=== PATIENT | female | born 1950 | race Caucasian/White ===

== ENCOUNTER 2016-11-20 03:32 | Inpatient (IN) | payer MEDICARE, OTHER ==
[2016-11-20] VITALS (14 sets, daily range): BP systolic 107–143; BP diastolic 55–89; PULSE 89–111; RESP 19–20; TEMP 98.7; Ht 157.5 cm; Wt 87.0 kg
[~2016-11-20] VITALS: Ht 157.5 cm; Wt 87.0 kg
[2016-11-20] MEDS ORDERED: ALBUTEROL 0.5% (NEB) 2.5 MG/0.5 ML AMP INH STA (03:41)
[2016-11-20] MEDS ORDERED: IPRATROPIUM (NEB) 0.5 MG/2.5 ML AMP INH STA (03:41)
[2016-11-20] MEDS ORDERED: METHYLPREDNISOLONE 125 MG INJ IV STA (03:41)
[2016-11-20 04:15] LABS: BASOPHILS % 0.4 % (0.0-2.0); EOSINOPHILS # 0.2 10^3/ul (0.0-0.5); EOSINOPHILS % 2.5 % (0.0-7.0); HEMATOCRIT 33.6 % (37.0-47.0); HEMOGLOBIN 10.9 g/dl (12.0-16.0); LYMPHOCYTES # 2.2 10^3/ul (0.8-2.9); LYMPHOCYTES % 23.6 % (15.0-51.0); MEAN CORPUSCULAR HEMOGLOBIN 30.2 pg (29.0-33.0); MEAN CORPUSCULAR HGB CONC 32.6 g/dl (32.0-37.0); MEAN CORPUSCULAR VOLUME 92.8 fl (82.0-101.0); MEAN PLATELET VOLUME 9.4 fl (7.4-10.4); MONOCYTES % 10.8 % (0.0-11.0); NEUTROPHILS % 62.7 % (39.0-77.0); PLATELET COUNT 247 10^3/UL (140-440); RED BLOOD COUNT 3.62 10^6/ul (4.20-5.40); RED CELL DISTRIBUTION WIDTH 17.5 % (11.5-14.5); UNCORRECTED WBC 9.5 10^3/ul (4.8-10.8); WHITE BLOOD COUNT 9.5 10^3/ul (4.8-10.8)
--- NOTE | 2016-11-20 04:22 | RADRPT ---
PROCEDURE: XR Chest. CLINICAL INDICATION: Chest pain TECHNIQUE: Chest AP portable. COMPARISON: 10/08/2016 FINDINGS: The mediastinal structures are unremarkable. There is calcification of the thoracic aorta (consiste nt with atherosclerosis). There is moderate cardiac enlargement. There is mild pulmonary venous hy pertension. No consolidation is identified. The pleural spaces are unremarkable. There are senesc ent changes of the axial skeleton. IMPRESSION: Moderate cardiac enlargement. Mild pulmonary venous hypertension. RPTAT: HGDB .Kamlesh Ayala MD, Date Time Electronically viewed and signed by .Kamlesh Ayala MD, on 11/20/2016 04:21 .B/
[2016-11-20 04:23] LABS: CONDITION 1; LH ANALYZER COMMENTS 1
[2016-11-20 05:07] LABS: INR 1.39; PARTIAL THROMBOPLASTIN TIME 34.9 Sec (25.0-35.0); PROTIME 17.1 Sec (12.2-14.2); PT RATIO 1.3
[2016-11-20 05:13] LABS: POTASSIUM 3.8 mmol/L (3.5-5.1)
[2016-11-20 05:15] LABS: CREATININE 1.19 mg/dl (0.44-1.00)
[2016-11-20 05:25] LABS: CK-MB 1.37 ng/ml (0.0-2.4)
[2016-11-20 05:29] LABS: TROPONIN-I 0.031 ng/ml (0.00-0.12)
[2016-11-20] MEDS ORDERED: ACETAMINOPHEN 325 MG TAB PO PRN ×2 (05:30→06:30)
[2016-11-20] MEDS ORDERED: ONDANSETRON 4 MG INJ IV PRN ×2 (05:30→06:30)
--- NOTE | 2016-11-20 05:34 | ERA ---
ER Documentation Chief Complaint Date/Time DATE: 11/20/16 TIME: 05:31 Chief Complaint cough x 4 wks, increased SOB, low sats x 2 days. 89% ra on scene, hhn x1 HPI This is a 66-year-old female who presents to the emergency room for evaluation of shortness of breath, wheezing, and a dry cough. The patient was brought in by ambulance from her alf where she was found to have a pulse oxygen of 89% on room air. This patient has no chest pain at this time and came to the ER for evaluation. ROS All systems reviewed and are negative except as per history of present illness. Medications Home Meds No Active Prescriptions or Reported Meds Allergies Allergies: Coded Allergies: No Known Allergy (Verified , 09/23/16) PMhx/Soc History of Surgery: Yes Anesthesia Reaction: No Hx Neurological Disorder: No Hx Respiratory Disorders: Yes (shortness of breath on exertion, PNA) Hx Cardiac Disorders: Yes (Hypertension, heart disease, CHF, [place] AUG 2016) Hx Psychiatric Problems: No Hx Miscellaneous Medical Probl: No Hx Alcohol Use: No Hx Substance Use: No Hx Tobacco Use: No Smoking Status: Former smoker Physical Exam Vitals Vital Signs Date Time Temp Pulse Resp B/P Pulse Ox O2 Delivery O2 Flow Rate FiO2 11/20/16 04:00 104 26 95 Nasal Cannula 2.0 28 11/20/16 03:45 Nasal Cannula 4.0 11/20/16 03:45 Nasal Cannula 4 11/20/16 03:45 98.7 91 20 106/71 96 11/20/16 03:41 98.7 94 20 106/71 94 Physical Exam INITIAL VITAL SIGNS: Reviewed by me GENERAL: The patient is well developed, moderate respiratory HEENT: Pupils equal, round, and reactive to light. EOMI. There is no scleral icterus. NECK: C-spine is soft and supple, there is no meningismus. There is no cervical lymphadenopathy. LUNGS: Diffuse wheezing and rhonchi auscultated in all [place] HEART: Regular rate and rhythm, no murmurs, clicks, rubs or gallops. ABDOMEN: Soft, non-tender, non-distended. There are bowel sounds in all four quadrants. No rebound or guarding. EXTREMITIES: 1+ pitting edema in the bilateral lower exam NEUROLOGICAL: The patient moves all four extremities with 5/5 strength. Cranial nerves II - XII are intact. Normal gait. Alert and oriented SKIN: There is no apparent rash or petechiae. HEME/LYMPHATIC: There is no evidence of excessive bruising or lymphedema. PSYCHIATRIC: The patient does not appear anxious or depressed. Result Diagram: 11/20/1639911/20/160 Results 24 hrs Laboratory Tests Test 11/20/16 04:00 11/20/16 04:33 Anion Gap 19 Basophils # 0.010^3/ul Basophils % 0.4% Blood Morphology Comment Blood Urea Nitrogen 33mg/dl Calcium Level 8.0mg/dl Carbon Dioxide Level 25mmol/L Chloride Level 102mmol/L Creatinine 1.19mg/dl Eosinophils # 0.210^3/ul Eosinophils % 2.5% Glucose Level 107mg/dl Hematocrit 33.6% Hemoglobin 10.9g/dl Lymphocytes # 2.210^3/ul Lymphocytes % 23.6% Mean Corpuscular Hemoglobin 30.2pg Mean Corpuscular Hemoglobin Concent 32.6g/dl Mean Corpuscular Volume 92.8fl Mean Platelet Volume 9.4fl Monocytes # 1.010^3/ul Monocytes % 10.8% Neutrophils # 6.010^3/ul Neutrophils % 62.7% Nucleated Red Blood Cells # 0.010^3/ul Nucleated Red Blood Cells % 0.0/100WBC Platelet Count 43878^3/UL Potassium Level 3.8mmol/L Red Blood Count 3.6210^6/ul Red Cell Distribution Width 17.5% Sodium Level 142mmol/L White Blood Count 9.510^3/ul Activated Partial Thromboplast Time 34.9Sec B-Type Natriuretic Peptide 3510PG/ML Creatine Kinase 74IU/L Creatine Kinase Index 1.9 Creatinine Kinase MB (Mass) 1.37ng/ml INR International Normalized Ratio 1.39 Prothrombin Time 17.1Sec Prothrombin Time Ratio 1.3 Troponin I 0.031ng/ml Current Medications Medications (Trade) Dose Ordered Sig/Joel Route PRN Reason Start Time Stop Time Status Last Admin Dose Admin Albuterol (Proventil 0.5% (Neb)) 10 mg ONCE STAT INH 11/20/16 03:41 11/20/16 03:43 DC 11/20/16 03:58 Ipratropium [place] (Atrovent 0.02% (Neb)) 1 mg ONCE STAT INH 11/20/16 03:41 11/20/16 03:43 DC 11/20/16 03:58 Methylprednisolone Sodium Succinate (Solu-Medrol) 125 mg ONCE STAT IV 11/20/16 03:41 11/20/16 03:43 DC 11/20/16 04:25 Procedures/MDM EKG: Rate/Rhythm: [Normal Sinus Rhythm] QRS, ST, T-waves: [No changes consistent w/ acute ischemia] Impression: [No evidence of ischemia or arrhythmia] Chest X-ray 1V Interpreted by me: Soft Tissue: Pulmonary vascular congestion Bones: No acute abnormalities Mediastinum/Cardiac Silhouette/Lungs: [No acute abnormalities] This 66-year-old female presents to the ER for evaluation of shortness of breath. This patient was diffusely wheezing when I listen to her, we did place her on a nebulizer on an hour-long breathing treatment with albuterol and Atrovent. She was given Solu-Medrol. She still has diffuse wheezing. She was hypoxic prior to arrival with a pulse oxygenation of 89% on room air. Given this patient's hypoxia, and the refractory wheezing with breathing treatment so she will be placed in for admission at this time. She does have mild pulmonary vascular congestion and was also given 40 mg of Lasix IV. Critical Care: Excluding all billable procedures Time: 36 minutes Treatments/Evaluations: Emergent and rapid respiratory assessment and management with continuous monitoring. Advanced airway equipment at the ready, while the patient's respiratory symptoms were stabilized. Departure Diagnosis: Primary Impression: Acute exacerbation of COPD with asthma Additional Impressions: Respiratory failure with hypoxia Renal insufficiency Acute decompensated heart failure Condition: Stable JONES MENDIOLA DO Nov 20, 2016 05:34
[2016-11-20] MEDS ORDERED: FUROSEMIDE 40 MG INJ IV ONE (06:00)
[2016-11-20] MEDS ORDERED: LORAZEPAM 2 MG INJ IV PRN (06:30)
[2016-11-20] MEDS ORDERED: NACL 0.9% 3 ML SYG IV SCH (06:30)
[2016-11-20] MEDS ORDERED: ALBUTEROL/IPRATROPIUM (NEB) 3 ML AMP HHN PRN (06:30)
--- NOTE | 2016-11-20 08:11 | HP ---
DATE OF ADMISSION: 11/20/2016 HISTORY: The patient is a 66-year-old female with a history of CHF, with systolic dysfunction, with an ejection fraction of 30 to 35%, hypertension, cirrhosis, recent PEA cardiac arrest 2 months ago, severe mitral and tricuspid regurgitation, pulmonary hypertension and obesity, with a BMI of 31, and COPD, who presented to the emergency department shortness of breath. She stated the symptom had bee n going on for 2 days and is worse with ambulation. She denied any chest pain, cough, fever, chills , nausea or vomiting. The patient recently was admitted here 2 months ago after a PEA cardiac arres t. At that time, she was successfully resuscitated at that time obviously was intubated and was dee soto in consultation with several specialties, including the cardiology and pulmonology. A 2D echo at that time showed an ejection fraction of 30% and also she was found to have moderate to severe mi tral and tricuspid regurgitation. She was discharged with the appropriate medications, including an ALBERTO inhibitor, beta brent, Lasix, bronchodilator and a prednisone taper. She stated she has been relatively well up until 2 days ago when she started having worsening shortness of breath. When she presented to the ER, blood pressure was 106/71, heart rate 94, respiratory rate 20, tempera ture 98.4, oxygen saturation 94% on room air. Chest x-ray shows moderate cardiac enlargement and mi ld pulmonary venous hypertension. Laboratory values show a hemoglobin of 10.9, BUN 33, creatinine 1 .2, from 0.5 a month ago when she was discharged. The patient was treated with 125 mg of IV Solu-Me drol and bronchodilators and was given 40 mg of IV Lasix while in the emergency room. REVIEW OF SYSTEMS: A 12-point review of systems was performed and negative except as mentioned in t he HPI. PAST MEDICAL HISTORY AND PAST SURGICAL HISTORY: As per HPI. ALLERGIES: NO KNOWN DRUG ALLERGIES. HOME MEDICATIONS: The patient was discharged with: 1. Tylenol. 2. Aspirin. 3. Baclofen. 4. Benazepril. 5. Coreg. 6. Colace. 7. Folic acid. 8. Lasix 9. Insulin. 10. Multivitamin. 11. Sublingual nitroglycerin. 12. Protonix. 13. Simethicone. 14. Thiamine. 15. Hydralazine. 16. Ativan. 17. Tramadol. 18. Celebrex. 19. Combivent. 20. Metformin. PHYSICAL EXAMINATION: VITAL SIGNS: Stable. GENERAL: In no acute distress, answering questions appropriately. HEENT: No obvious head deformity. Pupils are reactive to light. Extraocular muscles are intact. CARDIOVASCULAR: Systolic ejection murmur. Regular rate and rhythm. She has a systolic ejection mu rmur. LUNGS: Slightly diminished breath sounds at the bases, with minimal scattered wheezing. ABDOMEN: Soft, obese, nontender, nondistended. Positive bowel sounds. EXTREMITIES: No edema. NEUROLOGIC: No focal deficits. LABORATORY: Pertinent positives as mentioned in the HPI. IMAGING: Chest x-ray results as mentioned in the HPI. IMPRESSION: 1. Shortness of breath, likely secondary to chronic obstructive pulmonary disease and congestive he art failure exacerbation. 2. Status post pulseless electric activity cardiac arrest 2 months ago. 3. Acute kidney injury. 4. History of liver cirrhosis. 5. History of moderate to severe mitral and tricuspid regurgitation. 6. History of congestive heart failure with diastolic and systolic dysfunction, with an ejection fr action of 30%. PLAN: Admit to the telemetry unit. She will be placed on oxygen, steroids and Lasix and will be co ntinued with her cardiac medication. She will receive as needed bronchodilators. Will place a card iology and a pulmonary consult. If no improvement with her kidney function, will place a nephrology consult. The patient had an unremarkable renal ultrasound 2 month ago. Further workup and management per clinical course. Dictated By: LUBA KANG/NATHAN Conf#: [id number] DID#: [id number]
[2016-11-20] MEDS ORDERED: CARV3.12 PO (08:42)
[2016-11-20] MEDS ORDERED: HYDR-3671 PO (08:42)
[2016-11-20] MEDS ORDERED: DOCU-144 PO (08:42)
[2016-11-20] MEDS ORDERED: BACL10TA PO (08:42)
[2016-11-20] MEDS ORDERED: FOL8 PO (08:42)
[2016-11-20] MEDS ORDERED: BENA5TAB2 PO (08:42)
[2016-11-20] MEDS ORDERED: CELE200C PO (08:42)
[2016-11-20] MEDS ORDERED: PRED5 PO (08:42)
[2016-11-20] MEDS ORDERED: TRAM50TA2 PO (08:42)
[2016-11-20] MEDS ORDERED: BENZ100C70 PO (08:42)
[2016-11-20] MEDS ORDERED: GABA300C PO (08:42)
[2016-11-20] MEDS ORDERED: THIA100T10 PO (08:42)
[2016-11-20] MEDS ORDERED: PANT40TA4 PO (08:42)
[2016-11-20] MEDS ORDERED: NITR0.4T6 SL (08:42)
[2016-11-20] MEDS ORDERED: MULT-761 PO (08:42)
[2016-11-20] MEDS ORDERED: ACET325T33 PO (08:42)
[2016-11-20] MEDS ORDERED: BENZ1LOZ52 MM (08:42)
[2016-11-20] MEDS ORDERED: ASPI81TA3 PO (08:42)
[2016-11-20] MEDS ORDERED: SIME80TA53 PO (08:42)
[2016-11-20] MEDS ORDERED: PROM5SYR2 PO (08:42)
[2016-11-20] MEDS: SALMETEROL/FLUTICASONE 250/50 INHA INH SCH ×2 (09:21→20:52)
[2016-11-20] MEDS: METHYLPREDNISOLONE 125 MG INJ IV SCH (09:21)
[2016-11-20] MEDS: HEPARIN 5,000 UNIT/0.5 ML SYG SC SCH ×2 (09:28→20:50)
[2016-11-20] MEDS ORDERED: METF500T4 PO (10:29)
[2016-11-20] MEDS ORDERED: MAGN400O4 PO (10:29)
[2016-11-20] MEDS ORDERED: LORA0.5T PO (10:29)
[2016-11-20] MEDS ORDERED: IPRA4AER INHALATION (10:29)
--- NOTE | 2016-11-20 14:50 | QN ---
Documentation Comment Labs reviewed. Examined the patient. Resumed home medications. Called pulmonary and cardiology consult. Plan of care was explained to the patient. Case discussed with Dr. Jean-Baptiste. BRADLEY GHOTRA NP Nov 20, 2016 14:50
[2016-11-20] MEDS ORDERED: DEXTROSE 50% 50 ML SYRINGE IV PRN ×2 (15:00)
[2016-11-20] MEDS ORDERED: GLUCOSE GEL 15 GRAM TUBE PO PRN ×2 (15:00)
[2016-11-20] MEDS ORDERED: GLUCAGON 1 MG INJ IM PRN (15:00)
[2016-11-20] MEDS ORDERED: GLUCOSE GEL 15 GRAM TUBE BUCCAL PRN (15:00)
[2016-11-20] MEDS: GUAIFENESIN/DM 5ML CUP PO PRN ×2 (15:52→20:42)
[2016-11-20 16:20] LABS: CK-MB 1.78 ng/ml (0.0-2.4)
[2016-11-20 16:23] LABS: TROPONIN-I 0.027 ng/ml (0.00-0.12)
[2016-11-20] MEDS ORDERED: metFORMIN 500 MG TAB PO SCH (18:05)
--- NOTE | 2016-11-20 18:45 | CONS ---
DATE OF ADMISSION: 11/20/2016 DATE OF CONSULTATION: 11/20/2016 REASON FOR CONSULTATION: Shortness of breath. Thank you, Dr. Hutchinson, for this consultation. HISTORY OF PRESENT ILLNESS: This is a 66-year-old lady well known to me, seen by myself following r ecent cardiopulmonary arrest, respiratory failure. She was successfully extubated and since then [facility]. There she has been experiencing increasing shortness of breath over the past few weeks with congestion, increase in pr oductive cough, but denies any fever or chills. She has a history of tobacco use with underlying em physema. PAST MEDICAL HISTORY: Also includes pulmonary hypertension, morbid obesity, cardiopulmonary arrest, underlying COPD, decreased ejection fraction with moderate to severe tricuspid regurgitation. PAST MEDICAL HISTORY: As above. MEDICATIONS: Per chart. ALLERGIES: NONE. SOCIAL HISTORY: Ex-smoker, no alcohol, no history of drug use. FAMILY HISTORY: Noncontributory. SYSTEMS REVIEW: A 12-point review of systems was negative other than that mentioned above. PHYSICAL EXAMINATION: GENERAL: Morbidly obese lady, awake, alert, oriented, comfortable at rest, talking in full and comp lete sentences. VITAL SIGNS: Currently afebrile. Pulse is 100, blood pressure 107/55, O2 saturation 98% on room ai r. NECK: Supple. No JVD or lymphadenopathy. CARDIAC: S1, S2, no added sounds or murmurs. CHEST: Diminished air entry bilaterally. ABDOMEN: Soft, nontender. No guarding or rebound. EXTREMITIES: No cyanosis, clubbing, edema +1. NEUROLOGIC: Lower extremity weakness. LABORATORY DATA: White count 9.5, hemoglobin 10.9, platelets of 247. BUN 33, creatinine 1.19. BNP 3510. IMPRESSION AND PLAN: 1. Dyspnea, likely secondary to congestive cardiac failure. 2. Possible underlying chronic obstructive pulmonary disease exacerbation. 3. History of cardiopulmonary arrest. 4. History of prolonged respiratory failure. 5. History of diabetes. The patient will require: 1. Continued bronchodilators. 2. Continue diuretics. 3. Supplemental O2. 4. Rapid steroid taper. 5. DVT and GI prophylaxis. Dictated By: VERN ESTEBAN/NATHAN Conf#: [id number] DID#: [id number]
[2016-11-20] MEDS: ALBUTEROL/IPRATROPIUM (NEB) 3 ML AMP HHN SCH (20:24)
[2016-11-20] MEDS: GABAPENTIN 300 MG CAP PO SCH (20:42)
[2016-11-20] MEDS: DOCUSATE SODIUM 100 MG CAP PO SCH (20:42)
[2016-11-21] VITALS (12 sets, daily range): BP systolic 106–137; BP diastolic 72–94; PULSE 84–106; RESP 17–21
[2016-11-21] MEDS ORDERED: LOPERAMIDE 2 MG CAP PO PRN (02:30)
[2016-11-21] MEDS: GUAIFENESIN/DM 5ML CUP PO PRN ×2 (06:36→21:07)
[2016-11-21 07:34] LABS: BASOPHILS % 0.2 % (0.0-2.0); HEMATOCRIT 35.1 % (37.0-47.0); HEMOGLOBIN 11.5 g/dl (12.0-16.0); LYMPHOCYTES % 11.1 % (15.0-51.0); MEAN CORPUSCULAR HEMOGLOBIN 30.1 pg (29.0-33.0); MEAN CORPUSCULAR HGB CONC 32.8 g/dl (32.0-37.0); MEAN CORPUSCULAR VOLUME 91.8 fl (82.0-101.0); MONOCYTES % 11.4 % (0.0-11.0); NEUTROPHILS % 77.3 % (39.0-77.0); PLATELET COUNT 265 10^3/UL (140-440); RED BLOOD COUNT 3.82 10^6/ul (4.20-5.40); RED CELL DISTRIBUTION WIDTH 17.4 % (11.5-14.5)
[2016-11-21 07:42] LABS: CONDITION 1; LH ANALYZER COMMENTS 1; SUSPECT 1
[2016-11-21] MEDS: ALBUTEROL/IPRATROPIUM (NEB) 3 ML AMP HHN SCH ×3 (07:49→20:32)
[2016-11-21 07:51] LABS: PHOSPHORUS 3.8 mg/dl (2.5-4.9)
[2016-11-21 07:52] LABS: CHOL/HDL RATIO 4.8 RATIO; MAGNESIUM 1.4 mg/dl (1.7-2.5)
[2016-11-21 07:57] LABS: ALBUMIN 3.8 g/dl (3.3-4.9)
[2016-11-21 07:58] LABS: POTASSIUM 4.3 mmol/L (3.5-5.1)
[2016-11-21 08:00] LABS: BILIRUBIN,INDIRECT 0.2 mg/dl (0-1.1); BILIRUBIN,TOTAL 0.2 mg/dl (0.2-1.3); CREATININE 0.89 mg/dl (0.44-1.00)
[2016-11-21 08:01] LABS: ALBUMIN/GLOBULIN RATIO 1.22; CALCIUM 8.9 mg/dl (8.4-10.2); TOTAL PROTEIN 6.9 g/dl (6.1-8.1); TROPONIN-I 0.135 ng/ml (0.00-0.12)
[2016-11-21 08:16] LABS: THYROID STIMULATING HORMONE 0.99 MIU/L (0.465-4.680)
[2016-11-21] MEDS ORDERED: FUROSEMIDE 40 MG INJ IV SCH (09:00)
[2016-11-21] MEDS: DOCUSATE SODIUM 100 MG CAP PO SCH ×2 (09:00→21:00)
[2016-11-21] MEDS ORDERED: BENAZEPRIL 5 MG TAB PO SCH (09:00)
[2016-11-21] MEDS: METHYLPREDNISOLONE 125 MG INJ IV SCH (09:15)
[2016-11-21] MEDS: SALMETEROL/FLUTICASONE 250/50 INHA INH SCH ×2 (09:16→21:08)
[2016-11-21] MEDS: FOLIC ACID 0.4 MG TAB PO SCH (09:16)
[2016-11-21] MEDS: HEPARIN 5,000 UNIT/0.5 ML SYG SC SCH ×2 (09:56→21:09)
--- NOTE | 2016-11-21 14:10 | PN ---
DATE: 11/21/2016 TIME OF EVALUATION: 12:00 p.m. SUBJECTIVE DATA: Complaints of dyspnea and pleuritic chest pain. OBJECTIVE DATA: VITAL SIGNS: Temperature 98.6, pulse rate 93, respiratory rate 17, blood pressure 127/92, oxygen saturation 95% on low flow O2. GENERAL: This is an obese female patient lying in bed in mild respiratory distress. HEENT: Head normocephalic and atraumatic. Eyes: Anicteric sclerae. Conjunctivae clear. ENT: Nasal septum is midline. Oral mucosa is dry. NECK: Supple. No JVD noticed. RESPIRATORY: Bilaterally diminished breath sounds. Minimal use of accessory muscles of respiration. Bilateral few fine rales heard. Occasional wheezing. CARDIAC: Regular rate and rhythm with systolic ejection murmur. ABDOMEN: Soft, nontender and nondistended. Bowel sounds positive in all 4 quadrants. GENITOURINARY: Deferred. EXTREMITIES: No cyanosis, no clubbing. Bilateral lower extremity 2 to 3+ pitting edema. Peripheral pulses are palpable. NEUROLOGIC: The patient is awake, alert and oriented. Cranial nerves are grossly intact. LABORATORY AND DIAGNOSTIC DATA: WBC 9.0, hemoglobin 11.5, hematocrit 35.1, platelet count of 265. Sodium 142, potassium 4.3, chloride 101, carbon dioxide 25, anion gap 21, BUN 32, creatinine 0.8, glucose 91, calcium 8.9, phosphorus 3.8, magnesium 1.4, troponin I 0.123. ASSESSMENT AND PLAN: 1. Acute on chronic hypoxic respiratory failure. Etiology could be multifactorial in nature secondary to congestive heart failure exacerbation and chronic obstructive pulmonary disease exacerbation. Continue inhaled bronchodilators. Continue inhaled bronchodilators. The patient being followed by pulmonology. 2. Possible underlying chronic obstructive pulmonary disease exacerbation. Continue inhaled bronchodilators and tapering dose of steroids. 3. Elevated troponins. Etiology unclear. We will trend troponins. Cardiology following the patient. 4. History of cardiac arrest with pulseless electrical activity approximately 2 months ago. Continue to optimize cardiac medications. 5. Cardiomyopathy with ejection fraction of 35% with stage I diastolic dysfunction. Continue Yaw inhibitors and beta blockers. Cardiology following the patient. 6. Acute on chronic congestive heart failure exacerbation with systolic and diastolic dysfunction. Continue aggressive diuresis. Continue cardiac medications. Cardiology following the patient. 7. Fluid, electrolytes and nutrition. Continue regular diet. 8. DVT prophylaxis. Subcutaneous Lovenox. 9. Gastrointestinal prophylaxis. H2 receptor blockers. 10. Plan. Continue diuresis. Continue tapering dose of IV steroids. Will trend troponins. Case discussed with Dr. Carter. BRADLEY CARTER MD, AM/NATHAN Conf#: [id number] DID#: [id number] MTDD
[2016-11-21] MEDS ORDERED: MAGNESIUM SULFATE 3 GM in SOD CHLORIDE 0.9% 100 ML IVPB ONE (14:30)
--- NOTE | 2016-11-21 14:34 | CONS ---
DATE OF ADMISSION: 11/20/2016 DATE OF CONSULTATION: 11/21/2016 CARDIOLOGY CONSULTATION REFERRING PHYSICIAN: Dr. Milian REASON FOR EVALUATION: CHF exacerbation, cardiomyopathy. HISTORY OF PRESENT ILLNESS: Ms. Colon is a 66-year-old woman known to me from prior admission who has a history of hypertension, dyslipidemia, prior history of coronary artery disease, history of ci rrhosis, history of heart failure with ejection fraction of 35% to 40%, who comes to the hospital no w for evaluation of progressive increasing shortness of breath. Patient appears to be with signific ant gross fluid overload. She is clearly in heart failure by the examination. Her EKG shows some n onspecific ST-T changes with occasional PVCs and PACs with minimal aberrant conduction, but no acute signs of ischemia. For now, the patient appears to be better. There is no chest pain, but she is still with significant degree of fluid overload. The goal of care is to continue optimization of fl uid status. Will optimize her afterload reduction and facilitate diuresis as noted. PAST MEDICAL HISTORY: 1. Hypertension. 2. Dyslipidemia. 3. Cirrhosis. 4. Ascites. 5. Coagulopathy. 6. History of coronary artery disease in the past. 7. History of cardiomyopathy with EF 35% to 40%. 8. Prior history of CHF. ALLERGIES: NO KNOWN DRUG ALLERGIES. SOCIAL HISTORY: Does smoke, does not drink, does not use any drugs. FAMILY HISTORY: Negative for sudden cardiac or premature coronary artery disease. MEDICATIONS: 1. Benazepril 2.5 mg p.o. once a day. 2. Folic acid. 3. Lasix 40 mg IV. 4. Coreg 3.125 b.i.d. 5. Gabapentin. 6. Docusate 7. Albuterol. 8. IV flush. REVIEW OF SYSTEMS: CONSTITUTIONAL: No fevers, no chills, no shortness of breath. HEENT: No changes in vision or hearing. CARDIAC: No chest pain reported. RESPIRATORY: No shortness of breath. GASTROINTESTINAL: No nausea, vomiting, diarrhea, constipation. GENITOURINARY: No dysuria, hematuria, difficulty with urination. NEUROLOGIC: No focal neurologic deficits. HEMATOLOGIC: No easy bruising. PSYCHIATRIC: Possible history of psychiatric illness. PHYSICAL EXAMINATION: VITAL SIGNS: Temperature is 98.5, heart rate is 104, blood pressure 137/94. GENERAL: She is a well-nourished woman in no acute distress, alert and oriented x3, aware of her co ndition, but not her medical condition. HEAD: Normocephalic, atraumatic. EYES: Anicteric. NECK: Supple. JVD is 9 to 10 cm. There is no lymphadenopathy or thyromegaly. HEART: Regular with occasional irregularities. PMI is displaced leftward. LUNGS: Coarse with scattered rhonchi. ABDOMEN: Distended, bowel sounds present. There is no hepatosplenomegaly. GENITOURINARY: Grossly intact. EXTREMITIES: Show 2+ edema, acute on chronic. LABORATORY DATA: White blood cell count 9.0, hemoglobin 11.5, platelets 265. INR is 1.39. Sodium 142, potassium 4.3. Her BUN is 13, creatinine 0.9. Troponin from 0.027 to 0.135. BNP is over 3000 . ASSESSMENT AND PLAN: 1. Congestive heart failure. The patient with heart failure, systolic, acute on chronic. For now, the goal of care is to continue diuresis. We will optimize fluid status and afterload reduction. 2. Hypertension, modestly well controlled. We will continue to follow expectantly, blood pressure well controlled. 3. Coronary artery disease. Patient has history of coronary artery disease, ____ chest pain now. Will check another set of troponins, will reinitiate beta brent and afterload reduction as tolerat ed. 4. Acute renal failure. Creatinine is modestly fairly stable. Continue to maintain good urine out put in the setting of acute heart failure. 5. ____, no particular treatment is required. Continue to keep electrolytes in range. I would like to thank Dr. Milian for referring this patient for my evaluation. Dictated By: DANNY PALMER MD ML/NTS Conf#: [id number] DID#: [id number] CC: LUBA MILIAN MD;*EndCC*
[2016-11-21] MEDS: FAMOTIDINE 20 MG TAB PO SCH (14:48)
[2016-11-21] MEDS: FUROSEMIDE 40 MG INJ IV SCH (17:36)
--- NOTE | 2016-11-21 18:00 | RADRPT ---
PROCEDURE: Ultrasound of the bilateral lower extremity venous system. CLINICAL INDICATION: Bilateral leg pain and swelling, deep venous thrombosis TECHNIQUE: Gutierrez scale with and without compression, color doppler, spectral doppler of the venous system of the bilateral lower extremities was performed. Venous augmentation maneuvers were utilized . COMPARISON: 09/29/2016 FINDINGS: RIGHT: Common femoral vein: Patent. Superficial femoral vein: Patent. Popliteal vein: Patent. Calf veins: Patent. No soft tissue abnormalities are identified. LEFT: Common femoral vein: Patent. Superficial femoral vein: Patent. Popliteal vein: Patent. Calf veins: Patent. No soft tissue abnormalities are identified. IMPRESSION: No evidence of a deep vein thrombosis within the bilateral lower extremities. RPTAT: AADD .Tarun Romero MD, MD Date Time Electronically viewed and signed by .Tarun Romero MD, on 11/21/2016 17:59 .B/
--- NOTE | 2016-11-21 20:38 | PN ---
DATE: 11/21/2016 PULMONARY FOLLOWUP SUBJECTIVE: Chart reviewed. Events noted. Currently, the patient on 3 L O2 nasal cannula, saturat ing 95%. She continues to feel short of breath. She denies any chest pain. PHYSICAL EXAMINATION VITAL SIGNS: Blood pressure 127/92, pulse 93, respirations 17, temperature 98.6. HEENT: Pupils are equal and reactive to light. NECK: Supple; no JVD noted, no cervical adenopathy, no carotid bruits heard. LUNGS: Fair breath sounds bilaterally. No wheezes present. CARDIOVASCULAR: S1, S2 normal. ABDOMEN: Soft, nontender. No organomegaly or masses noted. EXTREMITIES: No clubbing or cyanosis noted. 2+ pretibial edema present. NEUROLOGICAL: Awake and alert. LABORATORIES: Sodium 142, potassium 4.3, chloride 101, CO2 24, BUN 32, creatinine 0.89, glucose 191 . Troponin mildly elevated at 0.135. WBC 9, hemoglobin 11.5, hematocrit 35.1, platelets 265. IMPRESSION 1. Congestive heart failure. 2. Likely underlying chronic obstructive pulmonary disease. 3. History of cardiopulmonary arrest. 4. History of prolonged respiratory failure. 5. History of diabetes mellitus. RECOMMENDATIONS 1. Continue diuresis. 2. Bronchodilators. 3. Oxygen. 4. A steroid taper. 5. Gastrointestinal and deep vein thrombosis prophylaxis. 6. Check Dopplers of lower extremity venous. Dictated By: RICHARDSON COURTNEY MD, MA/NATHAN Conf#: [id number] DID#: [id number]
[2016-11-21] MEDS: CEPASTAT LOZENGE MT PRN (21:08)
[2016-11-21] MEDS: GABAPENTIN 300 MG CAP PO SCH (21:08)
[2016-11-22] VITALS (12 sets, daily range): BP systolic 113–149; BP diastolic 71–98; PULSE 84–102; RESP 17–22
[2016-11-22] MEDS: FUROSEMIDE 40 MG INJ IV SCH ×2 (06:53→17:22)
[2016-11-22 07:44] LABS: POTASSIUM 4.3 mmol/L (3.5-5.1)
[2016-11-22 07:47] LABS: CREATININE 0.91 mg/dl (0.44-1.00)
[2016-11-22 07:48] LABS: CALCIUM 9.2 mg/dl (8.4-10.2)
[2016-11-22 07:50] LABS: MAGNESIUM 1.7 mg/dl (1.7-2.5)
[2016-11-22 07:58] LABS: HEMATOCRIT 33.9 % (37.0-47.0); HEMOGLOBIN 11.3 g/dl (12.0-16.0); LYMPHOCYTES # 0.9 10^3/ul (0.8-2.9); LYMPHOCYTES % 9.5 % (15.0-51.0); MEAN CORPUSCULAR HEMOGLOBIN 30.6 pg (29.0-33.0); MEAN CORPUSCULAR HGB CONC 33.3 g/dl (32.0-37.0); MEAN CORPUSCULAR VOLUME 91.9 fl (82.0-101.0); MONOCYTE # 1.2 10^3/ul (0.3-0.9); NEUTROPHILS % 77.5 % (39.0-77.0); PLATELET COUNT 248 10^3/UL (140-440); RED BLOOD COUNT 3.69 10^6/ul (4.20-5.40); RED CELL DISTRIBUTION WIDTH 17.6 % (11.5-14.5)
[2016-11-22 08:00] LABS: TROPONIN-I 0.067 ng/ml (0.00-0.12)
[2016-11-22 08:03] LABS: PHOSPHORUS 3.8 mg/dl (2.5-4.9)
[2016-11-22 08:18] LABS: CONDITION 1; LH ANALYZER COMMENTS 1; SUSPECT 1
[2016-11-22] MEDS: ALBUTEROL/IPRATROPIUM (NEB) 3 ML AMP HHN SCH (08:32)
[2016-11-22] MEDS: FOLIC ACID 0.4 MG TAB PO SCH (08:38)
[2016-11-22] MEDS: SALMETEROL/FLUTICASONE 250/50 INHA INH SCH ×2 (08:38→22:22)
[2016-11-22] MEDS: METHYLPREDNISOLONE 125 MG INJ IV SCH (08:38)
[2016-11-22] MEDS: BENAZEPRIL 10 MG TAB GTB SCH (08:39)
[2016-11-22] MEDS: HEPARIN 5,000 UNIT/0.5 ML SYG SC SCH ×2 (08:40→22:28)
[2016-11-22] MEDS: FAMOTIDINE 20 MG TAB PO SCH (08:40)
[2016-11-22] MEDS: DOCUSATE SODIUM 100 MG CAP PO SCH ×2 (08:42→22:31)
[2016-11-22] MEDS ORDERED: ENOXAPARIN 40 MG/0.4 ML SYG SC SCH (09:00)
[2016-11-22 09:36] LABS: CK-MB 2.33 ng/ml (0.0-2.4)
[2016-11-22 11:10] LABS: ADD UMIC NO; URINE BILIRUBIN (Dip) NEGATIVE (NEGATIVE); URINE BLOOD (Dip) NEGATIVE (NEGATIVE); URINE COLOR LT. YELLOW (YELLOW); URINE GLUCOSE (Dip) NEGATIVE (NEGATIVE); URINE KETONES (Dip) NEGATIVE (NEGATIVE); URINE LEUKOCYTE ESTERASE (Dip) NEGATIVE (NEGATIVE); URINE NITRITE (Dip) NEGATIVE (NEGATIVE); URINE TOTAL PROTEIN (Dip) NEGATIVE (NEGATIVE); URINE UROBILINOGEN (Dip) 0.2 E.U./dL (0.1-1.0)
--- NOTE | 2016-11-22 13:43 | CONS ---
Date/Time of Note Date/Time of Note DATE: 11/22/16 TIME: 13:41 Assessment/Plan Assessment/Plan Additional Assessment/Plan 1. Congestive heart failure. The patient with heart failure, systolic, acute on chronic. For now, the goal of care is to continue diuresis. We will optimize fluid status and afterload reduction. BETTER, con't diuresis. 2. Hypertension, modestly well controlled. We will continue to follow expectantly, blood pressure well controlled. BETTER today. 3. Coronary artery disease. Patient has history of coronary artery disease - troponins trending down. 4. Acute renal failure. Creatinine is modestly fairly stable. Continue to maintain good urine output in the setting of acute heart failure.STable now. 5. PACs - rare - no particular treatment is required. Continue to keep electrolytes in range. Consultation Date/Type/Reason Admit Date/Time Nov 20, 2016 at 05:31 Initial Consult Date 24 HR Interval Summary Free Text/Dictation NO acute events - no significant - con't diuresis. ROS: No fever, no chills, no nausea, no vomiting, no diarrhea/constipation No recent weight changes No chest pain, no PND, no orthopnea No dizziness, blurred vision No thirst, no heat or cold intolerance Exam/Review of Systems Vital Signs Vitals Vital Signs Date Time Temp Pulse Resp B/P Pulse Ox O2 Delivery O2 Flow Rate FiO2 11/22/16 12:30 102 11/22/16 11:53 98.1 18 116/76 90 11/22/16 11:44 Nasal Cannula 4.0 11/20/16 04:00 28 Intake and Output 11/21/16 11/21/16 11/22/16 15:00 23:00 07:00 Intake Total 870 ml 300 ml Output Total 400 ml 400 ml Balance 470 ml -100 ml Exam General: WN/WD/NAD, AOx 3 HEENT: Unicetric/atraumatic/EOMI ( follow commands) NECK: JVD elevated, no thyromegaly Lymph: no lymphadenopathy HEART: regular with no S3, II/ systolic murmur at apex LUNGS: Coarse sounds ABD: soft, NT, ND, +BS : Intact Neuro: non focal SKIN: chronic changes EXT: improved edema Results Result Diagram: 11/22/16 0657 11/22/16 0657 Results 24 hrs Laboratory Tests Test 11/21/16 21:15 1/29/17 06:57 Urine Bilirubin NEGATIVE Urine Clarity CLEAR Urine Color LT. YELLOW Urine Glucose NEGATIVE Urine Hemoglobin NEGATIVE Urine Ketones NEGATIVE Urine Leukocyte Esterase NEGATIVE Urine Nitrite NEGATIVE Urine Specific [place] 1.020 Urine Total Protein NEGATIVE Urine Urobilinogen 0.2 E.U./dL Urine pH 5.5 Anion Gap 18 H Basophils # 0.0 Basophils % 0.0 Blood Morphology Comment Blood Urea Nitrogen 39 H Calcium Level 9.2 Carbon Dioxide Level 26 Chloride Level 101 Creatine Kinase 69 Creatine Kinase Index 3.4 Creatinine 0.91 Creatinine Kinase MB (Mass) 2.33 Eosinophils # 0.0 Eosinophils % 0.0 Glucose Level 144 # Hematocrit 33.9 L Hemoglobin 11.3 L Lymphocytes # 0.9 Lymphocytes % 9.5 L Magnesium Level 1.7 Mean Corpuscular Hemoglobin 30.6 Mean Corpuscular Hemoglobin Concent 33.3 Mean Corpuscular Volume 91.9 Mean Platelet Volume 10.0 Monocytes # 1.2 H Monocytes % 13.0 H Neutrophils # 7.0 Neutrophils % 77.5 H Nucleated Red Blood Cells # 0.0 Nucleated Red Blood Cells % 0.0 Phosphorus Level 3.8 Platelet Count 248 Potassium Level 4.3 Red Blood Count 3.69 L Red Cell Distribution Width 17.6 H Sodium Level 141 Troponin I 0.067 White Blood Count 9.0 Medications Medications Current Medications Lorazepam (Ativan) 0.5 mg Q6H PRN IV ANXIETY; Start 11/20/16 at 06:30 Ondansetron HCl (Zofran Inj) 4 mg Q6H PRN IV NAUSEA AND/OR VOMITING; Start at 06:30 Methylprednisolone Sodium Succinate (Solu-Medrol) 60 mg DAILY IV Last administered on 11/22/16 08:38; Admin Dose 60 MG; Start 11/20/16 at 09:00 Acetaminophen (Tylenol Tab) 650 mg Q6H PRN PO PAIN LEVEL 1-3 OR FEVER; Start at 06:30 Morphine Sulfate (morphine) 2 mg Q4H PRN IV PAIN LEVEL 7-10; Start 11/20/16 at 06:30 Heparin Sodium (Porcine) (Heparin (5000 Units/0.5 ml)) 5,000 unit Q12 SC Last administered on 11/22/16 08:40; Admin Dose 5,000 UNIT; Start 11/20/16 at 09:00 Salmeterol Xinafoate/ Fluticasone (Advair 250/50 Diskus) 1 inh BID INH Last administered on 11/22/16 08:38; Admin Dose 1 INH; Start 11/20/16 at 09:00 Influenza Virus Vaccine (Fluzone) 0.5 ml ONCE ONCE IM* ; Start 11/23/16 at 09:00 ; Stop 11/23/16 at 09:01 Carvedilol (Coreg) 3.125 mg BID PO Last administered on 11/22/16 08:39; Admin Dose 3.125 MG; Start 11/20/16 at 21:00 Docusate Sodium (Colace) 100 mg BID PO Last administered on 11/20/16 20:42; Admin Dose 100 MG; Start 11/20/16 at 21:00 Folic Acid (Folic Acid) 0.8 mg DAILY PO Last administered on 11/22/16 08:38; Admin Dose 0.8 MG; Start 11/21/16 at 09:00 Gabapentin (Neurontin) 300 mg QHS PO Last administered on 11/21/16 21:08; Admin Dose 300 MG; Start 11/20/16 at 21:00 Miscellaneous Information 1 ea NOTE XX ; Start 11/20/16 at 15:00 Guaifenesin/ Dextromethorphan (Robitussin Dm Liquid Cup) 5 ml Q4H PRN PO COUGH Last administered on 11/21/16 21:07; Admin Dose 5 ML; Start 11/20/16 at 16:00 Loperamide HCl (Imodium Cap) 2 mg QID PRN PO DIARRHEA Last administered on 11/21 06:31; Admin Dose 2 MG; Start 11/21/16 at 02:30 Benazepril HCl (Lotensin) 10 mg DAILY GTB Last administered on 11/22/16 08:39 ; Admin Dose 10 MG; Start 11/22/16 at 09:00 Phenol (Cepastat Lozenge) 1 lozenge Q1H PRN MT Sore throat Last administered on 11/21/16 21:08; Admin Dose 1 LOZENGE; Start 11/21/16 at 13:00 Famotidine (Pepcid) 20 mg DAILY PO Last administered on 11/22/16 08:40; Admin Dose 20 MG; Start 11/21/16 at 14:00 DANNY PALMER MD Nov 22, 2016 13:43
[2016-11-22] MEDS: morphine 2 MG INJ IV PRN (13:58)
--- NOTE | 2016-11-22 14:09 | PN ---
Date/Time of Note Date/Time of Note DATE: 11/22/16 TIME: 14:08 Assessment/Plan VTE Prophylaxis VTE Prophylaxis Intervention: heparin Lines/Catheters IV [facility] Saline Lock Urinary Cath still in place: No Reason Cath still needed: other (indicate) Assessment/Plan Chief Complaint/Hosp Course 1. Acute on chronic hypoxic respiratory failure. Etiology could be multifactorial in nature secondary to congestive heart failure exacerbation and chronic obstructive pulmonary disease exacerbation. Continue inhaled bronchodilators. Continue inhaled bronchodilators. The patient being followed by pulmonology. 2. Possible underlying chronic obstructive pulmonary disease exacerbation. Continue inhaled bronchodilators and tapering dose of steroids. 3. Elevated troponins. Resolved. Elevation most probably from demand ischemia. 4. History of cardiac arrest with pulseless electrical activity approximately 2 months ago. Continue to optimize cardiac medications. 5. Cardiomyopathy with ejection fraction of 35% with stage I diastolic dysfunction. Continue Yaw inhibitors and beta blockers. Cardiology following the patient. 6. Acute on chronic congestive heart failure exacerbation with systolic and diastolic dysfunction. Continue aggressive diuresis. Continue cardiac medications. Cardiology following the patient. 7. Fluid, electrolytes and nutrition. Continue regular diet. 8. DVT prophylaxis. Subcutaneous heparin. 9. Gastrointestinal prophylaxis. H2 receptor blockers. 10. Plan. Continue diuresis. Continue tapering dose of IV steroids. Case discussed with Dr. Jean-Baptiste. Problems: Subjective 24 Hr Interval Summary Free Text/Dictation Was having significant dyspnea with minimal exertion today. Denies any chest pain. Exam/Review of Systems Vital Signs Vitals Vital Signs Date Time Temp Pulse Resp B/P Pulse Ox O2 Delivery O2 Flow Rate FiO2 11/22/16 12:30 102 11/22/16 11:53 98.1 18 116/76 90 11/22/16 11:44 Nasal Cannula 4.0 11/20/16 04:00 28 Intake and Output 11/21/16 11/21/16 11/22/16 15:00 23:00 07:00 Intake Total 870 ml 300 ml Output Total 400 ml 400 ml Balance 470 ml -100 ml Exam GENERAL: This is an obese female patient lying in bed in mild respiratory distress. HEENT: Head normocephalic and atraumatic. Eyes: Anicteric sclerae. Conjunctivae clear. ENT: Nasal septum is midline. Oral mucosa is dry. NECK: Supple. No JVD noticed. RESPIRATORY: Bilaterally diminished breath sounds. Minimal use of accessory muscles of respiration. Bilateral few fine rales heard. Occasional wheezing. CARDIAC: Regular rate and rhythm with systolic ejection murmur. ABDOMEN: Soft, nontender and nondistended. Bowel sounds positive in all 4 quadrants. GENITOURINARY: Deferred. EXTREMITIES: No cyanosis, no clubbing. Bilateral lower extremity 2 to 3+ pitting edema. Peripheral pulses are palpable. NEUROLOGIC: The patient is awake, alert and oriented. Cranial nerves are grossly intact. Results Result Diagram: 11/22/1657 11/22/16 0657 Results 24 hrs Laboratory Tests Test 11/21/16 21:15 11/22/16 06:57 Urine Bilirubin NEGATIVE Urine Clarity CLEAR Urine Color LT. YELLOW Urine Glucose NEGATIVE Urine Hemoglobin NEGATIVE Urine Ketones NEGATIVE Urine Leukocyte Esterase NEGATIVE Urine Nitrite NEGATIVE Urine Specific [place] 1.020 Urine Total Protein NEGATIVE Urine Urobilinogen 0.2 E.U./dL Urine pH 5.5 Anion Gap 18 H Basophils # 0.0 Basophils % 0.0 Blood Morphology Comment Blood Urea Nitrogen 39 H Calcium Level 9.2 Carbon Dioxide Level 26 Chloride Level 101 Creatine Kinase 69 Creatine Kinase Index 3.4 Creatinine 0.91 Creatinine Kinase MB (Mass) 2.33 Eosinophils # 0.0 Eosinophils % 0.0 Glucose Level 144 # Hematocrit 33.9 L Hemoglobin 11.3 L Lymphocytes # 0.9 Lymphocytes % 9.5 L Magnesium Level 1.7 Mean Corpuscular Hemoglobin 30.6 Mean Corpuscular Hemoglobin Concent 33.3 Mean Corpuscular Volume 91.9 Mean Platelet Volume 10.0 Monocytes # 1.2 H Monocytes % 13.0 H Neutrophils # 7.0 Neutrophils % 77.5 H Nucleated Red Blood Cells # 0.0 Nucleated Red Blood Cells % 0.0 Phosphorus Level 3.8 Platelet Count 248 Potassium Level 4.3 Red Blood Count 3.69 L Red Cell Distribution Width 17.6 H Sodium Level 141 Troponin I 0.067 White Blood Count 9.0 Medications Medications Current Medications Lorazepam (Ativan) 0.5 mg Q6H PRN IV ANXIETY; Start 11/20/16 at 06:30 Ondansetron HCl (Zofran Inj) 4 mg Q6H PRN IV NAUSEA AND/OR VOMITING; Start at 06:30 Methylprednisolone Sodium Succinate (Solu-Medrol) 60 mg DAILY IV Last administered on 11/22/16t 08:38; Admin Dose 60 MG; Start 11/20/16 at 09:00 Acetaminophen (Tylenol Tab) 650 mg Q6H PRN PO PAIN LEVEL 1-3 OR FEVER; Start at 06:30 Morphine Sulfate (morphine) 2 mg Q4H PRN IV PAIN LEVEL 7-10 Last administered on 11/22/16 13:58; Admin Dose 2 MG; Start 11/20/16 at 06:30 Heparin Sodium (Porcine) (Heparin (5000 Units/0.5 ml)) 5,000 unit Q12 SC Last administered on 11/22/16 08:40; Admin Dose 5,000 UNIT; Start 11/20/16 at 09:00 Salmeterol Xinafoate/ Fluticasone (Advair 250/50 Diskus) 1 inh BID INH Last administered on 11/22/16 08:38; Admin Dose 1 INH; Start 11/20/16 at 09:00 Influenza Virus Vaccine (Fluzone) 0.5 ml ONCE ONCE IM* ; Start 11/23/16 at 09:00 ; Stop 11/23/16 at 09:01 Carvedilol (Coreg) 3.125 mg BID PO Last administered on 11/22/16 08:39; Admin Dose 3.125 MG; Start 11/20/16 at 21:00 Docusate Sodium (Colace) 100 mg BID PO Last administered on 11/20/16 20:42; Admin Dose 100 MG; Start 11/20/16 at 21:00 Folic Acid (Folic Acid) 0.8 mg DAILY PO Last administered on 11/22/16 08:38; Admin Dose 0.8 MG; Start 11/21/16 at 09:00 Gabapentin (Neurontin) 300 mg QHS PO Last administered on 11/21/16 21:08; Admin Dose 300 MG; Start 11/20/16 at 21:00 Miscellaneous Information 1 ea NOTE XX ; Start 11/20/16 at 15:00 Guaifenesin/ Dextromethorphan (Robitussin Dm Liquid Cup) 5 ml Q4H PRN PO COUGH Last administered on 11/21/16 21:07; Admin Dose 5 ML; Start 11/20/16 at 16:00 Loperamide HCl (Imodium Cap) 2 mg QID PRN PO DIARRHEA Last administered on 11/21 06:31; Admin Dose 2 MG; Start 11/21/16 at 02:30 Benazepril HCl (Lotensin) 10 mg DAILY GTB Last administered on 11/22/16 08:39 ; Admin Dose 10 MG; Start 11/22/16 at 09:00 Phenol (Cepastat Lozenge) 1 lozenge Q1H PRN MT Sore throat Last administered on 11/21/16 21:08; Admin Dose 1 LOZENGE; Start 11/21/16 at 13:00 Famotidine (Pepcid) 20 mg DAILY PO Last administered on 11/22/16 08:40; Admin Dose 20 MG; Start 11/21/16 at 14:00 BRADLEY GHOTRA NP Nov 22, 2016 14:09
[2016-11-22] MEDS ORDERED: MAGNESIUM SULFATE 1 GM/D5W 100 ML IVPB ONE (14:30)
[2016-11-22] MEDS ORDERED: LEVALBUTEROL (NEB) 0.63 MG/3 ML AMP HHN PRN (14:30)
[2016-11-22] MEDS: LEVALBUTEROL (NEB) 0.63 MG/3 ML AMP HHN SCH ×2 (17:05→20:23)
[2016-11-22] MEDS: IPRATROPIUM (NEB) 0.5 MG/2.5 ML AMP HHN SCH ×2 (17:05→20:23)
--- NOTE | 2016-11-22 18:13 | PN ---
DATE: 11/22/2016 SUBJECTIVE: Chart reviewed. The patient on 4 L O2 nasal cannula, saturating 93% to 94%. PHYSICAL EXAMINATION: VITAL SIGNS: Blood pressure 116/76, pulse 88, respiration 18, temperature 98.1. HEENT: Pupils are equal and react to light. NECK: No JVD noted, no cervical lymphadenopathy noted, no carotid bruits heard. LUNGS: Fair breath sounds bilaterally. CARDIOVASCULAR: S1, S2 normal. ABDOMEN: Soft, nontender. No organomegaly or masses noted. EXTREMITIES: No clubbing or cyanosis noted. Pretibial edema present. NEUROLOGICAL: Awake and alert. LABORATORY DATA: Sodium 141, potassium 4.3, chloride 101, CO2 of 26, BUN 39, creatinine 0.91, gluco se 144. WBC 9, hemoglobin 11.3, hematocrit 33.9, platelets 248. Dopplers of lower extremities were negative for acute DVT. IMPRESSION: 1. Congestive heart failure. 2. Underlying chronic obstructive pulmonary disease. 3. History of cardiopulmonary arrest. 4. History of prolonged respiratory failure in the past. 5. History of diabetes mellitus. RECOMMENDATIONS: 1. Continue diuresis. 2. Bronchodilators. 3. Oxygen. 4. Steroid taper. 5. Followup x-ray. Dictated By: RICHARDSON COURTNEY MD, MA/NATHAN Conf#: [id number] DID#: [id number]
[2016-11-22] MEDS: GUAIFENESIN/DM 5ML CUP PO PRN (22:22)
[2016-11-22] MEDS: GABAPENTIN 300 MG CAP PO SCH (22:22)
[2016-11-22] MEDS: CEPASTAT LOZENGE MT PRN (22:23)
[2016-11-22] MEDS: METHYLPREDNISOLONE 40 MG INJ IV SCH (22:23)
[2016-11-23] VITALS (13 sets, daily range): BP systolic 104–122; BP diastolic 72–246; PULSE 70–92; RESP 18–22
[2016-11-23] MEDS: LEVALBUTEROL (NEB) 0.63 MG/3 ML AMP HHN SCH ×6 (00:29→20:34)
[2016-11-23] MEDS: morphine 2 MG INJ IV PRN ×3 (02:30→21:24)
[2016-11-23] MEDS: CEPASTAT LOZENGE MT PRN ×2 (02:35→06:27)
[2016-11-23] MEDS: GUAIFENESIN/DM 5ML CUP PO PRN ×3 (02:36→21:30)
[2016-11-23] MEDS ORDERED: LEVALBUTEROL (NEB) 1.25 MG/0.5 ML AMP ONE (04:10)
[2016-11-23] MEDS: FUROSEMIDE 40 MG INJ IV SCH (06:28)
[2016-11-23 08:23] LABS: BASOPHILS % 0.1 % (0.0-2.0); HEMATOCRIT 34.5 % (37.0-47.0); HEMOGLOBIN 11.4 g/dl (12.0-16.0); LYMPHOCYTES # 0.8 10^3/ul (0.8-2.9); LYMPHOCYTES % 12.5 % (15.0-51.0); MEAN CORPUSCULAR HEMOGLOBIN 30.3 pg (29.0-33.0); MEAN CORPUSCULAR HGB CONC 32.9 g/dl (32.0-37.0); MEAN CORPUSCULAR VOLUME 91.9 fl (82.0-101.0); MEAN PLATELET VOLUME 10.1 fl (7.4-10.4); MONOCYTE # 0.7 10^3/ul (0.3-0.9); MONOCYTES % 10.8 % (0.0-11.0); NEUTROPHIL # 4.8 10^3/ul (1.6-7.5); NEUTROPHILS % 76.6 % (39.0-77.0); PLATELET COUNT 257 10^3/UL (140-440); RED BLOOD COUNT 3.75 10^6/ul (4.20-5.40); RED CELL DISTRIBUTION WIDTH 16.8 % (11.5-14.5); UNCORRECTED WBC 6.3 10^3/ul (4.8-10.8); WHITE BLOOD COUNT 6.3 10^3/ul (4.8-10.8)
[2016-11-23] MEDS: FAMOTIDINE 20 MG TAB PO SCH (08:23)
[2016-11-23] MEDS: FOLIC ACID 0.4 MG TAB PO SCH (08:23)
[2016-11-23] MEDS: SALMETEROL/FLUTICASONE 250/50 INHA INH SCH ×2 (08:23→21:26)
[2016-11-23] MEDS: DOCUSATE SODIUM 100 MG CAP PO SCH ×2 (08:24→21:00)
[2016-11-23] MEDS: BENAZEPRIL 10 MG TAB GTB SCH (08:24)
[2016-11-23] MEDS: METHYLPREDNISOLONE 40 MG INJ IV SCH ×3 (08:26→21:38)
[2016-11-23] MEDS: HEPARIN 5,000 UNIT/0.5 ML SYG SC SCH ×2 (08:26→21:46)
[2016-11-23 08:34] LABS: CONDITION 1; LH ANALYZER COMMENTS 1
[2016-11-23] MEDS: IPRATROPIUM (NEB) 0.5 MG/2.5 ML AMP HHN SCH ×4 (08:38→20:34)
[2016-11-23 08:44] LABS: PHOSPHORUS 5.4 mg/dl (2.5-4.9)
[2016-11-23 08:45] LABS: POTASSIUM 4.4 mmol/L (3.5-5.1)
[2016-11-23 08:47] LABS: CREATININE 1.17 mg/dl (0.44-1.00)
[2016-11-23 08:48] LABS: CALCIUM 9.2 mg/dl (8.4-10.2)
[2016-11-23] MEDS ORDERED: INFLUENZA VIRUS VACCINE 0.5 ML SYG IM* ONE (09:00)
--- NOTE | 2016-11-23 12:12 | CONS ---
Date/Time of Note Date/Time of Note DATE: 11/23/16 TIME: 12:07 Assessment/Plan Assessment/Plan Chief Complaint/Hosp Course IMPRESSION: 1. CHF-systolic EF 30-35% acute on chromnic by most recent echo 2. Hypertension 3. Abdominal pain. 4. H/O Cirrhosis. 5. SOB/resp distress 6.Mitral regurgitation-moderate to severe by prior echo 7. H/O PEA arrest-09/26 8.COPD 9. Positive troponin-now trended negative Recc: -Tele -Continue ACEI/Coreg -Continue lasix diuresis -Contineu steroids/bronchodilators -Follow volume status -Trend cardiac enzymes Problems: Consultation Date/Type/Reason Admit Date/Time Nov 20, 2016 at 05:31 Initial Consult Date 11/21/2016 Type of Consultation: Cardiology Reason for Consultation CHF Referring Provider: MELISA WYATT MD Exam/Review of Systems Vital Signs Vitals Vital Signs Date Time Temp Pulse Resp B/P Pulse Ox O2 Delivery O2 Flow Rate FiO2 11/23/16 12:03 76 11/23/16 08:24 98.0 18 109/72 98 11/23/16 08:00 Simple Mask 6.0 11/20/16 04:00 28 Intake and Output 11/22/16 11/22/16 11/23/16 15:00 23:00 07:00 Intake Total 100 ml 1150 ml 60 ml Output Total 200 ml 300 ml Balance 100 ml 950 ml -240 ml Exam Review of Systems: CONSTITUTIONAL: No fevers, chills. PULMONARY: mild sob CARDIOVASCULAR: No chest pain/palpitations GASTROINTESTINAL: No nausea/vomiting. GENITOURINARY: No hematuria/dysuria. MUSCULOSKELETAL: No myagias/arthalgias. PSYCHIATRIC: The patient denies depression. NEUROLOGIC: No weakness Constitutional: alert, oriented Psych: no complaints Head: normocephalic ENMT: mucosa pink and moist Neck: jvd (9 cm water), supple Respiratory: diminished breath sounds (at bases/B) Cardiovascular: regular rate and rhythm Gastrointestinal: non-tender, soft Musculoskeletal: muscle tone (normal) Extremities: pitting pedal edema (Bilateral) Neurological: other (No focal deficits) Results Result Diagram: 11/23/16 0730 11/23/16 0730 Results 24 hrs Laboratory Tests Test 11/23/16 07:30 Anion Gap 20 H Basophils # 0.0 Basophils % 0.1 Blood Morphology Comment Blood Urea Nitrogen 50 H Calcium Level 9.2 Carbon Dioxide Level 25 Chloride Level 101 Creatinine 1.17 H Eosinophils # 0.0 Eosinophils % 0.0 Glucose Level 167 Hematocrit 34.5 L Hemoglobin 11.4 L Lymphocytes # 0.8 Lymphocytes % 12.5 L Magnesium Level 2.0 Mean Corpuscular Hemoglobin 30.3 Mean Corpuscular Hemoglobin Concent 32.9 Mean Corpuscular Volume 91.9 Mean Platelet Volume 10.1 Monocytes # 0.7 Monocytes % 10.8 Neutrophils # 4.8 Neutrophils % 76.6 Nucleated Red Blood Cells # 0.0 Nucleated Red Blood Cells % 0.0 Phosphorus Level 5.4 H Platelet Count 257 Potassium Level 4.4 Red Blood Count 3.75 L Red Cell Distribution Width 16.8 H Sodium Level 142 White Blood Count 6.3 # Medications Medications Current Medications Lorazepam (Ativan) 0.5 mg Q6H PRN IV ANXIETY; Start 11/20/16 at 06:30 Ondansetron HCl (Zofran Inj) 4 mg Q6H PRN IV NAUSEA AND/OR VOMITING; Start at 06:30 Acetaminophen (Tylenol Tab) 650 mg Q6H PRN PO PAIN LEVEL 1-3 OR FEVER Last administered on 11/22/16 22:22; Admin Dose 650 MG; Start 11/20/16 at 06:30 Morphine Sulfate (morphine) 2 mg Q4H PRN IV PAIN LEVEL 7-10 Last administered on 11/23/16 06:28; Admin Dose 2 MG; Start 11/20/16 at 06:30 Heparin Sodium (Porcine) (Heparin (5000 Units/0.5 ml)) 5,000 unit Q12 SC Last administered on 11/23/16 08:26; Admin Dose 5,000 UNIT; Start 11/20/16 at 09:00 Salmeterol Xinafoate/ Fluticasone (Advair 250/50 Diskus) 1 inh BID INH Last administered on 11/23/16 08:23; Admin Dose 1 INH; Start 11/20/16 at 09:00 Carvedilol (Coreg) 3.125 mg BID PO Last administered on 11/23/16 08:25; Admin Dose 3.125 MG; Start 11/20/16 at 21:00 Docusate Sodium (Colace) 100 mg BID PO Last administered on 11/23/16 08:24; Admin Dose 100 MG; Start 11/20/16 at 21:00 Folic Acid (Folic Acid) 0.8 mg DAILY PO Last administered on 11/23/16 08:23; Admin Dose 0.8 MG; Start 11/21/16 at 09:00 Gabapentin (Neurontin) 300 mg QHS PO Last administered on 11/22/16 22:22; Admin Dose 300 MG; Start 11/20/16 at 21:00 Miscellaneous Information 1 ea NOTE XX ; Start 11/20/16 at 15:00 Guaifenesin/ Dextromethorphan (Robitussin Dm Liquid Cup) 5 ml Q4H PRN PO COUGH Last administered on 11/23/16 06:27; Admin Dose 5 ML; Start 11/20/16 at 16:00 Loperamide HCl (Imodium Cap) 2 mg QID PRN PO DIARRHEA Last administered on 11/21 06:31; Admin Dose 2 MG; Start 11/21/16 at 02:30 Benazepril HCl (Lotensin) 10 mg DAILY GTB Last administered on 11/23/16 08:24 ; Admin Dose 10 MG; Start 11/22/16 at 09:00 Phenol (Cepastat Lozenge) 1 lozenge Q1H PRN MT Sore throat Last administered on 11/23/16 06:27; Admin Dose 1 LOZENGE; Start 11/21/16 at 13:00 Famotidine (Pepcid) 20 mg DAILY PO Last administered on 11/23/16 08:23; Admin Dose 20 MG; Start 11/21/16 at 14:00 Methylprednisolone Sodium Succinate (Solu-Medrol) 20 mg Q12 IV Last administered on 11/23/16 08:26; Admin Dose 20 MG; Start 11/22/16 at 21:00 GREGORIA COCHRAN Nov 23, 2016 12:12
--- NOTE | 2016-11-23 14:00 | CONS ---
Date/Time of Note Date/Time of Note DATE: 11/23/16 TIME: 13:47 Consult Date/Type/Reason Admit Date/Time Nov 20, 2016 at 05:31 Initial Consult Date Type of Consultation: pulmonary Ordering Provider: MELISA WYATT MD Subjective Significant dyspnea on minimal exertion Continues facemask oxygen Currently hemodynamically stable Remains awake alert and oriented able to talk in full and complete sentences Objective Vital Signs Date Time Temp Pulse Resp B/P Pulse Ox O2 Delivery O2 Flow Rate FiO2 11/23/16 13:26 72 30 92 Simple Mask 12.0 11/23/16 12:00 97.9 108/74 11/20/16 04:00 28 Intake and Output 11/22/16 11/22/16 11/23/16 15:00 23:00 07:00 Intake Total 100 ml 1150 ml 60 ml Output Total 200 ml 300 ml Balance 100 ml 950 ml -240 ml PHYSICAL EXAMINATION: VITAL SIGNS: HEENT: Pupils are equal and react to light. NECK: No JVD noted, no cervical lymphadenopathy noted, no carotid bruits heard. LUNGS: Fair breath sounds bilaterally. CARDIOVASCULAR: S1, S2 normal. ABDOMEN: Soft, nontender. No organomegaly or masses noted. EXTREMITIES: No clubbing or cyanosis noted. Pretibial edema present. NEUROLOGICAL: Awake and alert. Results/Medications Result Diagram: 11/23/16 0730 11/23/16 0730 Results 24 hrs Laboratory Tests Test 11/23/16 07:30 Anion Gap 20 H Basophils # 0.0 Basophils % 0.1 Blood Morphology Comment Blood Urea Nitrogen 50 H Calcium Level 9.2 Carbon Dioxide Level 25 Chloride Level 101 Creatinine 1.17 H Eosinophils # 0.0 Eosinophils % 0.0 Glucose Level 167 Hematocrit 34.5 L Hemoglobin 11.4 L Lymphocytes # 0.8 Lymphocytes % 12.5 L Magnesium Level 2.0 Mean Corpuscular Hemoglobin 30.3 Mean Corpuscular Hemoglobin Concent 32.9 Mean Corpuscular Volume 91.9 Mean Platelet Volume 10.1 Monocytes # 0.7 Monocytes % 10.8 Neutrophils # 4.8 Neutrophils % 76.6 Nucleated Red Blood Cells # 0.0 Nucleated Red Blood Cells % 0.0 Phosphorus Level 5.4 H Platelet Count 257 Potassium Level 4.4 Red Blood Count 3.75 L Red Cell Distribution Width 16.8 H Sodium Level 142 White Blood Count 6.3 # Medications Current Medications Lorazepam (Ativan) 0.5 mg Q6H PRN IV ANXIETY; Start 11/20/16 at 06:30 Ondansetron HCl (Zofran Inj) 4 mg Q6H PRN IV NAUSEA AND/OR VOMITING; Start at 06:30 Acetaminophen (Tylenol Tab) 650 mg Q6H PRN PO PAIN LEVEL 1-3 OR FEVER Last administered on 11/22/16 22:22; Admin Dose 650 MG; Start 11/20/16 at 06:30 Morphine Sulfate (morphine) 2 mg Q4H PRN IV PAIN LEVEL 7-10 Last administered on 11/23/16 06:28; Admin Dose 2 MG; Start 11/20/16 at 06:30 Heparin Sodium (Porcine) (Heparin (5000 Units/0.5 ml)) 5,000 unit Q12 SC Last administered on 11/23/16 08:26; Admin Dose 5,000 UNIT; Start 11/20/16 at 09:00 Salmeterol Xinafoate/ Fluticasone (Advair 250/50 Diskus) 1 inh BID INH Last administered on 11/23/16 08:23; Admin Dose 1 INH; Start 11/20/16 at 09:00 Carvedilol (Coreg) 3.125 mg BID PO Last administered on 11/23/16 08:25; Admin Dose 3.125 MG; Start 11/20/16 at 21:00 Docusate Sodium (Colace) 100 mg BID PO Last administered on 11/23/16 08:24; Admin Dose 100 MG; Start 11/20/16 at 21:00 Folic Acid (Folic Acid) 0.8 mg DAILY PO Last administered on 11/23/16 08:23; Admin Dose 0.8 MG; Start 11/21/16 at 09:00 Gabapentin (Neurontin) 300 mg QHS PO Last administered on 11/22/16 22:22; Admin Dose 300 MG; Start 11/20/16 at 21:00 Miscellaneous Information 1 ea NOTE XX ; Start 11/20/16 at 15:00 Guaifenesin/ Dextromethorphan (Robitussin Dm Liquid Cup) 5 ml Q4H PRN PO COUGH Last administered on 11/23/16 06:27; Admin Dose 5 ML; Start 11/20/16 at 16:00 Loperamide HCl (Imodium Cap) 2 mg QID PRN PO DIARRHEA Last administered on 11/21 06:31; Admin Dose 2 MG; Start 11/21/16 at 02:30 Benazepril HCl (Lotensin) 10 mg DAILY GTB Last administered on 11/23/16 08:24 ; Admin Dose 10 MG; Start 11/22/16 at 09:00 Phenol (Cepastat Lozenge) 1 lozenge Q1H PRN MT Sore throat Last administered on 11/23/16 06:27; Admin Dose 1 LOZENGE; Start 11/21/16 at 13:00 Famotidine (Pepcid) 20 mg DAILY PO Last administered on 11/23/16 08:23; Admin Dose 20 MG; Start 11/21/16 at 14:00 Methylprednisolone Sodium Succinate (Solu-Medrol) 20 mg Q12 IV Last administered on 11/23/16 08:26; Admin Dose 20 MG; Start 11/22/16 at 21:00 Assessment/Plan Chief Complaint/Hosp Course IMPRESSION: 1. Congestive heart failure. 2. Underlying chronic obstructive pulmonary disease. 3. History of cardiopulmonary arrest. 4. History of prolonged respiratory failure in the past. 5. History of diabetes mellitus. 6. Rule out pulmonary embolism CT angiogram, Dopplers negative for deep vein thrombosis RECOMMENDATIONS: 1. Decrease Lasix 2. Bronchodilators. 3. Oxygen. 4. Increase steroids 5. CT angiogram rule out pulmonary embolism Problems: VERN ENRIQUEZ MD, [facility] Nov 23, 2016 13:57
--- NOTE | 2016-11-23 15:09 | PN ---
Date/Time of Note Date/Time of Note DATE: 11/23/16 TIME: 15:05 Assessment/Plan VTE Prophylaxis VTE Prophylaxis Intervention: heparin Lines/Catheters IV Catheter Type (from [facility]): Saline Lock Urinary Cath still in place: No Assessment/Plan Chief Complaint/Hosp Course Assessment and plan 1. Acute on chronic hypoxic respiratory failure. Likely secondary to CHF exacerbation mixed with COPD. Continue on bronchodilators continue on diuretics. Follow up on chest CT for rule out of pulmonary malaise and 2. Suspect underlying COPD exacerbation. Continue on bronchodilators and steroid treatment 3. Elevated troponins. Resolved at present. Likely secondary to demand ischemia. Continue with cardiology recommendations 4. History of chronic arrest with pulseless electrical activity 2 months ago. Continue optimization with cardiovascular medications 5. Cardiomyopathy with ejection fraction of 35%. Continue on ALBERTO inhibitor and beta brent. Grain Handler following. Continue with recommendations 6. Acute on chronic CHF with systolic and diastolic dysfunction. Continue on diuresis. Continue telemetry monitoring DVT prophylaxis: Heparin GERD prophylaxis: H2 brent Disposition and plan: Continued on diuresis. Await clinical improvement of respiratory status. Follow-up with CT angiogram of chest Discussed but of care with Dr. Lara Problems: Subjective 24 Hr Interval Summary Free Text/Dictation Still reports having some shortness of breath. Shortness of breath with any minimal movement Exam/Review of Systems Vital Signs Vitals Vital Signs Date Time Temp Pulse Resp B/P Pulse Ox O2 Delivery O2 Flow Rate FiO2 11/23/16 13:26 72 30 92 Simple Mask 12.0 11/23/16 12:00 97.9 108/74 11/20/16 04:00 28 Intake and Output 11/22/16 11/22/16 11/23/16 15:00 23:00 07:00 Intake Total 100 ml 1150 ml 60 ml Output Total 200 ml 300 ml Balance 100 ml 950 ml -240 ml Exam General: In minimal distress secondary to shortness of breath Eyes: pupils equal round, Anicteric sclera Neck: Supple nontender, no JVD Cardiac: S1, S2 auscultated, regular rhythm and rate Pulmonary: Coarse lung sounds auscultated bilateral lung field GI: Abdomen soft nontender nondistended, bowel sounds active Extremities: Edema seen bilateral lower extremities +2 Skin: Clean dry and intact Neurologic: Alert to person place and time and situation Results Result Diagram: 11/23/1630 11/23/16 0730 Results 24 hrs Laboratory Tests Test 11/23/16 07:30 Anion Gap 20 H Basophils # 0.0 Basophils % 0.1 Blood Morphology Comment Blood Urea Nitrogen 50 H Calcium Level 9.2 Carbon Dioxide Level 25 Chloride Level 101 Creatinine 1.17 H Eosinophils # 0.0 Eosinophils % 0.0 Glucose Level 167 Hematocrit 34.5 L Hemoglobin 11.4 L Lymphocytes # 0.8 Lymphocytes % 12.5 L Magnesium Level 2.0 Mean Corpuscular Hemoglobin 30.3 Mean Corpuscular Hemoglobin Concent 32.9 Mean Corpuscular Volume 91.9 Mean Platelet Volume 10.1 Monocytes # 0.7 Monocytes % 10.8 Neutrophils # 4.8 Neutrophils % 76.6 Nucleated Red Blood Cells # 0.0 Nucleated Red Blood Cells % 0.0 Phosphorus Level 5.4 H Platelet Count 257 Potassium Level 4.4 Red Blood Count 3.75 L Red Cell Distribution Width 16.8 H Sodium Level 142 White Blood Count 6.3 # Medications Medications Current Medications Lorazepam (Ativan) 0.5 mg Q6H PRN IV ANXIETY; Start 11/20/16 at 06:30 Ondansetron HCl (Zofran Inj) 4 mg Q6H PRN IV NAUSEA AND/OR VOMITING; Start at 06:30 Acetaminophen (Tylenol Tab) 650 mg Q6H PRN PO PAIN LEVEL 1-3 OR FEVER Last administered on 11/22/16 22:22; Admin Dose 650 MG; Start 11/20/16 at 06:30 Morphine Sulfate (morphine) 2 mg Q4H PRN IV PAIN LEVEL 7-10 Last administered on 11/23/16 06:28; Admin Dose 2 MG; Start 11/20/16 at 06:30 Heparin Sodium (Porcine) (Heparin (5000 Units/0.5 ml)) 5,000 unit Q12 SC Last administered on 11/23/16 08:26; Admin Dose 5,000 UNIT; Start 11/20/16 at 09:00 Salmeterol Xinafoate/ Fluticasone (Advair 250/50 Diskus) 1 inh BID INH Last administered on 11/23/16 08:23; Admin Dose 1 INH; Start 11/20/16 at 09:00 Carvedilol (Coreg) 3.125 mg BID PO Last administered on 11/23/16 08:25; Admin Dose 3.125 MG; Start 11/20/16 at 21:00 Docusate Sodium (Colace) 100 mg BID PO Last administered on 11/23/16 08:24; Admin Dose 100 MG; Start 11/20/16 at 21:00 Folic Acid (Folic Acid) 0.8 mg DAILY PO Last administered on 11/23/16 08:23; Admin Dose 0.8 MG; Start 11/21/16 at 09:00 Gabapentin (Neurontin) 300 mg QHS PO Last administered on 11/22/16 22:22; Admin Dose 300 MG; Start 11/20/16 at 21:00 Miscellaneous Information 1 ea NOTE XX ; Start 11/20/16 at 15:00 Guaifenesin/ Dextromethorphan (Robitussin Dm Liquid Cup) 5 ml Q4H PRN PO COUGH Last administered on 11/23/16 06:27; Admin Dose 5 ML; Start 11/20/16 at 16:00 Loperamide HCl (Imodium Cap) 2 mg QID PRN PO DIARRHEA Last administered on 11/21 06:31; Admin Dose 2 MG; Start 11/21/16 at 02:30 Benazepril HCl (Lotensin) 10 mg DAILY GTB Last administered on 11/23/16 08:24 ; Admin Dose 10 MG; Start 11/22/16 at 09:00 Phenol (Cepastat Lozenge) 1 lozenge Q1H PRN MT Sore throat Last administered on 11/23/16 06:27; Admin Dose 1 LOZENGE; Start 11/21/16 at 13:00 Famotidine (Pepcid) 20 mg DAILY PO Last administered on 11/23/16 08:23; Admin Dose 20 MG; Start 11/21/16 at 14:00 Furosemide (Lasix) 40 mg DAILY IV ; Start 11/24/16 at 09:00 Methylprednisolone Sodium Succinate (Solu-Medrol) 40 mg Q8 IV Last administered on 11/23/16 14:47; Admin Dose 40 MG; Start 11/23/16 at 14:00 TO BURNHAM Nov 23, 2016 15:09
[2016-11-23] MEDS ORDERED: IOHEXOL 100 ML ONE (17:43)
[2016-11-23] MEDS ORDERED: SOD CHLORIDE 0.9% 100 ML ONE (17:43)
[2016-11-23] MEDS ORDERED: IOHEXOL 350MG/ML 50 ML BTL ONE (17:44)
[2016-11-23] MEDS: GABAPENTIN 300 MG CAP PO SCH (21:29)
--- NOTE | 2016-11-23 23:10 | RADRPT ---
PROCEDURE: CT Pulmonary Angiogram. CLINICAL INDICATION: Chest pain and shortness of breath. TECHNIQUE: CT pulmonary angiogram and a CT scan of the chest with contrast was performed. The pat ient was scanned following the uncomplicated intravenous administration of 100 cc of Omnipaque-350 i ntravenous contrast. 2-D coronal reformatted images were obtained from the axial source images. In addition, 3-D post processing was performed. Total exam DLP is 588.03 mGy-cm. CTDIvol is 30.98 mG y. One or more of the following dose reduction techniques were used: Automated exposure control, ad justment of the mA and/or kV according to patient size, use of iterative reconstruction technique. COMPARISON: None available. FINDINGS: The pulmonary arteries are normal with no filling defect or lack of enhancement to suggest pulmonary artery embolism. There is mild atelectasis at both lung bases posteriorly, improved. Mild bilateral patchy ground-gl ass opacification of the lungs is also improved. There is mild bronchiolitis in the right upper lob e posteriorly and in the lingula. The lungs are otherwise clear. There is no pulmonary nodule or mass lesion. There is no pneumothorax. There is no mediastinal or hilar lymphadenopathy or mass. Previously noted bilateral pleural effusions are no longer present. There is no pericardial effusio n. The thoracic aorta is not opacified. There is calcification in the wall of the aorta consistent wit h atherosclerosis. The ascending aorta is mildly dilated measuring 4.1 cm. The heart is enlarged. There is coronary artery calcification. Images through the upper abdomen demonstrate normal visualized portions of the liver, spleen, and ad renals. There are degenerative changes of the spine. There is no fracture or lytic lesion. IMPRESSION: 1. Normal CT pulmonary angiogram with no evidence of pulmonary artery embolism. 2. Mild atelectasis at the lung bases, improved. 3. Mild patchy ground-glass opacification of the lungs, improved. 4. Mild bronchiectasis in the right upper lobe posteriorly and in the lingula. 5. Bilateral pleural effusions, longer present. 6. Atherosclerosis. There is 7 mildly dilated ascending aorta measuring 4.1 cm. 7. Cardiomegaly. 8. Coronary artery calcification. 9. Degenerative changes of the spine. RPTAT: QQ .Ward Teresa MD, MD Date Time Electronically viewed and signed by .Ward Teresa MD, MD on 11/23/2016 23:10 .R/
[2016-11-24] VITALS (10 sets, daily range): BP systolic 105–120; BP diastolic 64–84; PULSE 60–85; RESP 18–22
[2016-11-24] MEDS: LEVALBUTEROL (NEB) 0.63 MG/3 ML AMP HHN SCH ×6 (01:35→21:38)
[2016-11-24] MEDS: morphine 2 MG INJ IV PRN ×3 (03:35→23:23)
[2016-11-24] MEDS: GUAIFENESIN/DM 5ML CUP PO PRN ×2 (06:18→17:47)
[2016-11-24] MEDS: METHYLPREDNISOLONE 40 MG INJ IV SCH ×3 (06:22→22:36)
[2016-11-24 07:37] LABS: CK-MB 1.96 ng/ml (0.0-2.4)
[2016-11-24 07:40] LABS: TROPONIN-I 0.081 ng/ml (0.00-0.12)
[2016-11-24] MEDS: SALMETEROL/FLUTICASONE 250/50 INHA INH SCH ×2 (08:47→22:36)
[2016-11-24] MEDS: FUROSEMIDE 40 MG INJ IV SCH (08:48)
[2016-11-24] MEDS: FOLIC ACID 0.4 MG TAB PO SCH (08:48)
[2016-11-24] MEDS: FAMOTIDINE 20 MG TAB PO SCH (08:49)
[2016-11-24] MEDS: BENAZEPRIL 10 MG TAB GTB SCH (08:49)
[2016-11-24] MEDS: DOCUSATE SODIUM 100 MG CAP PO SCH ×2 (08:49→20:15)
[2016-11-24] MEDS: HEPARIN 5,000 UNIT/0.5 ML SYG SC SCH ×2 (08:51→20:50)
[2016-11-24] MEDS: IPRATROPIUM (NEB) 0.5 MG/2.5 ML AMP HHN SCH ×4 (09:45→21:38)
--- NOTE | 2016-11-24 15:57 | CONS ---
Date/Time of Note Date/Time of Note DATE: 11/24/16 TIME: 15:55 Consult Date/Type/Reason Admit Date/Time Nov 20, 2016 at 05:31 Type of Consultation: pulmonary Ordering Provider: MELISA WYATT MD Subjective The patient still has productive cough experiencing shortness breath on minimal exertion Currently he remains hemodynamic stable Remains awake alert and oriented CT angiogram performed shows no evidence of pulmonary embolism significant infiltrates no effusions Objective Vital Signs Date Time Temp Pulse Resp B/P Pulse Ox O2 Delivery O2 Flow Rate FiO2 11/24/16 13:27 81 30 85 Simple Mask 12.0 11/24/16 11:55 97.5 116/79 Intake and Output 11/23/16 11/23/16 11/24/16 15:00 23:00 07:00 Intake Total 500 ml 250 ml Output Total 400 ml 500 ml Balance 100 ml -250 ml PHYSICAL EXAMINATION: VITAL SIGNS: HEENT: Pupils are equal and react to light. NECK: No JVD noted, no cervical lymphadenopathy noted, no carotid bruits heard. LUNGS: Diminished air entry bilaterally with coarse rhonchi CARDIOVASCULAR: S1, S2 normal. ABDOMEN: Soft, nontender. No organomegaly or masses noted. EXTREMITIES: No clubbing or cyanosis noted. Pretibial edema present. NEUROLOGICAL: Awake and alert. Results/Medications Result Diagram: 11/23/16 0730 11/23/16 0730 Results 24 hrs Laboratory Tests Test 11/24/16 06:11 Creatine Kinase 44 Creatine Kinase Index 4.5 Creatinine Kinase MB (Mass) 1.96 Troponin I 0.081 Medications Current Medications Lorazepam (Ativan) 0.5 mg Q6H PRN IV ANXIETY; Start 11/20/16 at 06:30 Ondansetron HCl (Zofran Inj) 4 mg Q6H PRN IV NAUSEA AND/OR VOMITING; Start at 06:30 Acetaminophen (Tylenol Tab) 650 mg Q6H PRN PO PAIN LEVEL 1-3 OR FEVER Last administered on 11/22/16 22:22; Admin Dose 650 MG; Start 11/20/16 at 06:30 Morphine Sulfate (morphine) 2 mg Q4H PRN IV PAIN LEVEL 7-10 Last administered on 11/24/16 09:05; Admin Dose 2 MG; Start 11/20/16 at 06:30 Heparin Sodium (Porcine) (Heparin (5000 Units/0.5 ml)) 5,000 unit Q12 SC Last administered on 11/24/16 08:51; Admin Dose 5,000 UNIT; Start 11/20/16 at 09:00 Salmeterol Xinafoate/ Fluticasone (Advair 250/50 Diskus) 1 inh BID INH Last administered on 11/24/16 08:47; Admin Dose 1 INH; Start 11/20/16 at 09:00 Carvedilol (Coreg) 3.125 mg BID PO Last administered on 11/24/16 08:49; Admin Dose 3.125 MG; Start 11/20/16 at 21:00 Docusate Sodium (Colace) 100 mg BID PO Last administered on 11/24/16 08:49; Admin Dose 100 MG; Start 11/20/16 at 21:00 Folic Acid (Folic Acid) 0.8 mg DAILY PO Last administered on 11/24/16 08:48; Admin Dose 0.8 MG; Start 11/21/16 at 09:00 Gabapentin (Neurontin) 300 mg QHS PO Last administered on 11/23/16 21:29; Admin Dose 300 MG; Start 11/20/16 at 21:00 Miscellaneous Information 1 ea NOTE XX ; Start 11/20/16 at 15:00 Guaifenesin/ Dextromethorphan (Robitussin Dm Liquid Cup) 5 ml Q4H PRN PO COUGH Last administered on 11/24/16 06:18; Admin Dose 5 ML; Start 11/20/16 at 16:00 Loperamide HCl (Imodium Cap) 2 mg QID PRN PO DIARRHEA Last administered on 11/21 06:31; Admin Dose 2 MG; Start 11/21/16 at 02:30 Benazepril HCl (Lotensin) 10 mg DAILY GTB Last administered on 11/24/16 08:49 ; Admin Dose 10 MG; Start 11/22/16 at 09:00 Phenol (Cepastat Lozenge) 1 lozenge Q1H PRN MT Sore throat Last administered on 11/23/16 06:27; Admin Dose 1 LOZENGE; Start 11/21/16 at 13:00 Famotidine (Pepcid) 20 mg DAILY PO Last administered on 11/24/16 08:49; Admin Dose 20 MG; Start 11/21/16 at 14:00 Furosemide (Lasix) 40 mg DAILY IV Last administered on 11/24/16 08:48; Admin Dose 40 MG; Start 11/24/16 at 09:00 Methylprednisolone Sodium Succinate (Solu-Medrol) 40 mg Q8 IV Last administered on 11/24/16 13:36; Admin Dose 40 MG; Start 11/23/16 at 14:00 Assessment/Plan Chief Complaint/Hosp Course IMPRESSION: 1. Congestive heart failure. 2. Underlying chronic obstructive pulmonary disease. CT chest shows some bronchiectasis also 3. History of cardiopulmonary arrest. 4. History of prolonged respiratory failure in the past. 5. History of diabetes mellitus. 6. No evidence of thromboembolic disease on either CT pulmonary angiogram and lower extremity Dopplers RECOMMENDATIONS: 1. Continue Lasix 2. Bronchodilators. 3. Oxygen. 4. Increase steroids 5. Encourage out of bed, physical therapy evaluation Problems: VERN ENRIQUEZ MD, [facility] Nov 24, 2016 15:57
--- NOTE | 2016-11-24 17:33 | CONS ---
Date/Time of Note Date/Time of Note DATE: 11/24/16 TIME: 17:30 Assessment/Plan Assessment/Plan Chief Complaint/Hosp Course IMPRESSION: 1. CHF-systolic EF 30-35% acute on chronic by most recent echo 2. Hypertension 3. Abdominal pain. 4. H/O Cirrhosis. 5. SOB/resp distress 6.Mitral regurgitation-moderate to severe by prior echo 7. H/O PEA arrest-09/26 8.COPD 9. Positive troponin-now trended negative Recc: -Tele -Continue ACEI/Coreg -Continue lasix diuresis -Continue steroids/bronchodilators -Follow volume status which is slowly improving by CT -Trend cardiac enzymes Problems: Consultation Date/Type/Reason Admit Date/Time Nov 20, 2016 at 05:31 Initial Consult Date 11/21/2016 Type of Consultation: Cardiology Reason for Consultation CHF Referring Provider: MELISA WYATT MD Exam/Review of Systems Vital Signs Vitals Vital Signs Date Time Temp Pulse Resp B/P Pulse Ox O2 Delivery O2 Flow Rate FiO2 11/24/16 16:08 98.0 77 18 111/78 94 11/24/16 13:27 Simple Mask 12.0 Intake and Output 11/23/16 11/23/16 11/24/16 15:00 23:00 07:00 Intake Total 500 ml 250 ml Output Total 400 ml 500 ml Balance 100 ml -250 ml Exam Review of Systems: CONSTITUTIONAL: No fevers, chills. PULMONARY: moderate sob CARDIOVASCULAR: No chest pain/palpitations GASTROINTESTINAL: No nausea/vomiting. GENITOURINARY: No hematuria/dysuria. MUSCULOSKELETAL: No myagias/arthalgias. PSYCHIATRIC: The patient denies depression. NEUROLOGIC: No weakness Constitutional: alert, oriented Psych: no complaints Head: normocephalic ENMT: mucosa pink and moist Neck: jvd (10 cm water), supple Respiratory: diminished breath sounds Cardiovascular: regular rate and rhythm Gastrointestinal: non-tender, soft Musculoskeletal: muscle tone Extremities: pitting pedal edema (bilateral) Neurological: other (No focal deficits) Results Result Diagram: 11/23/16 0730 11/23/16 0730 Results 24 hrs Laboratory Tests Test 11/24/16 06:11 Creatine Kinase 44 Creatine Kinase Index 4.5 Creatinine Kinase MB (Mass) 1.96 Troponin I 0.081 Medications Medications Current Medications Lorazepam (Ativan) 0.5 mg Q6H PRN IV ANXIETY; Start 11/20/16 at 06:30 Ondansetron HCl (Zofran Inj) 4 mg Q6H PRN IV NAUSEA AND/OR VOMITING; Start at 06:30 Acetaminophen (Tylenol Tab) 650 mg Q6H PRN PO PAIN LEVEL 1-3 OR FEVER Last administered on 11/22/16 22:22; Admin Dose 650 MG; Start 11/20/16 at 06:30 Morphine Sulfate (morphine) 2 mg Q4H PRN IV PAIN LEVEL 7-10 Last administered on 11/24/16 09:05; Admin Dose 2 MG; Start 11/20/16 at 06:30 Heparin Sodium (Porcine) (Heparin (5000 Units/0.5 ml)) 5,000 unit Q12 SC Last administered on 11/24/16 08:51; Admin Dose 5,000 UNIT; Start 11/20/16 at 09:00 Salmeterol Xinafoate/ Fluticasone (Advair 250/50 Diskus) 1 inh BID INH Last administered on 11/24/16 08:47; Admin Dose 1 INH; Start 11/20/16 at 09:00 Carvedilol (Coreg) 3.125 mg BID PO Last administered on 11/24/16 08:49; Admin Dose 3.125 MG; Start 11/20/16 at 21:00 Docusate Sodium (Colace) 100 mg BID PO Last administered on 11/24/16 08:49; Admin Dose 100 MG; Start 11/20/16 at 21:00 Folic Acid (Folic Acid) 0.8 mg DAILY PO Last administered on 11/24/16 08:48; Admin Dose 0.8 MG; Start 11/21/16 at 09:00 Gabapentin (Neurontin) 300 mg QHS PO Last administered on 11/23/16 21:29; Admin Dose 300 MG; Start 11/20/16 at 21:00 Miscellaneous Information 1 ea NOTE XX ; Start 11/20/16 at 15:00 Guaifenesin/ Dextromethorphan (Robitussin Dm Liquid Cup) 5 ml Q4H PRN PO COUGH Last administered on 11/24/16 06:18; Admin Dose 5 ML; Start 11/20/16 at 16:00 Loperamide HCl (Imodium Cap) 2 mg QID PRN PO DIARRHEA Last administered on 11/21 06:31; Admin Dose 2 MG; Start 11/21/16 at 02:30 Benazepril HCl (Lotensin) 10 mg DAILY GTB Last administered on 11/24/16 08:49 ; Admin Dose 10 MG; Start 11/22/16 at 09:00 Phenol (Cepastat Lozenge) 1 lozenge Q1H PRN MT Sore throat Last administered on 11/23/16 06:27; Admin Dose 1 LOZENGE; Start 11/21/16 at 13:00 Famotidine (Pepcid) 20 mg DAILY PO Last administered on 11/24/16 08:49; Admin Dose 20 MG; Start 11/21/16 at 14:00 Furosemide (Lasix) 40 mg DAILY IV Last administered on 11/24/16 08:48; Admin Dose 40 MG; Start 11/24/16 at 09:00 Methylprednisolone Sodium Succinate (Solu-Medrol) 40 mg Q8 IV Last administered on 11/24/16 13:36; Admin Dose 40 MG; Start 11/23/16 at 14:00 GREGORIA COCHRAN Nov 24, 2016 17:33
--- NOTE | 2016-11-24 17:42 | PN ---
Date/Time of Note Date/Time of Note DATE: 11/24/16 TIME: 17:37 Assessment/Plan VTE Prophylaxis VTE Prophylaxis Intervention: heparin Lines/Catheters IV [facility]from [facility] Saline Lock Urinary Cath still in place: Yes Assessment/Plan Chief Complaint/Hosp Course Assessment and plan 1. Acute on chronic hypoxic respiratory failure. Likely secondary to CHF exacerbation mixed with COPD. Continue on bronchodilators continue on diuretics. no PE seen onCT angio. cont with pulm recs 2. Suspect underlying COPD exacerbation. Continue on bronchodilators and steroid treatment 3. Elevated troponins. Resolved at present. Likely secondary to demand ischemia. Continue with cardiology recommendations 4. History of chronic arrest with pulseless electrical activity 2 months ago. Continue optimization with cardiovascular medications 5. Cardiomyopathy with ejection fraction of 35%. Continue on ALBERTO inhibitor and beta brent. Box Turner following. Continue with recommendations 6. Acute on chronic CHF with systolic and diastolic dysfunction. Continue on diuresis. Continue telemetry monitoring DVT prophylaxis: Heparin GERD prophylaxis: H2 brent Disposition and plan: Continued on diuresis. Await clinical improvement of respiratory status. cont with pulmonary recs Discussed but of care with Dr. Lara Problems: Subjective 24 Hr Interval Summary Free Text/Dictation resting at this time. still reports having shortness of breath Exam/Review of Systems Vital Signs Vitals Vital Signs Date Time Temp Pulse Resp B/P Pulse Ox O2 Delivery O2 Flow Rate FiO2 11/24/16 16:08 98.0 77 18 111/78 94 11/24/16 13:27 Simple Mask 12.0 Intake and Output 11/23/16 11/23/16 11/24/16 15:00 23:00 07:00 Intake Total 500 ml 250 ml Output Total 400 ml 500 ml Balance 100 ml -250 ml Exam General: In minimal distress secondary to shortness of breath Eyes: pupils equal round, Anicteric sclera Neck: Supple nontender, no JVD Cardiac: S1, S2 auscultated, regular rhythm and rate Pulmonary: Coarse lung sounds auscultated bilateral lung field GI: Abdomen soft nontender nondistended, bowel sounds active Extremities: Edema seen bilateral lower extremities +2 Skin: Clean dry and intact Neurologic: Alert to person place and time and situation Results Result Diagram: 11/23/16 0730 11/23/16 0730 Results 24 hrs Laboratory Tests Test 11/24/16 06:11 Creatine Kinase 44 Creatine Kinase Index 4.5 Creatinine Kinase MB (Mass) 1.96 Troponin I 0.081 Medications Medications Current Medications Lorazepam (Ativan) 0.5 mg Q6H PRN IV ANXIETY; Start 11/20/16 at 06:30 Ondansetron HCl (Zofran Inj) 4 mg Q6H PRN IV NAUSEA AND/OR VOMITING; Start at 06:30 Acetaminophen (Tylenol Tab) 650 mg Q6H PRN PO PAIN LEVEL 1-3 OR FEVER Last administered on 11/22/16 22:22; Admin Dose 650 MG; Start 11/20/16 at 06:30 Morphine Sulfate (morphine) 2 mg Q4H PRN IV PAIN LEVEL 7-10 Last administered on 11/24/16 09:05; Admin Dose 2 MG; Start 11/20/16 at 06:30 Heparin Sodium (Porcine) (Heparin (5000 Units/0.5 ml)) 5,000 unit Q12 SC Last administered on 11/24/16 08:51; Admin Dose 5,000 UNIT; Start 11/20/16 at 09:00 Salmeterol Xinafoate/ Fluticasone (Advair 250/50 Diskus) 1 inh BID INH Last administered on 11/24/16 08:47; Admin Dose 1 INH; Start 11/20/16 at 09:00 Carvedilol (Coreg) 3.125 mg BID PO Last administered on 11/24/16 08:49; Admin Dose 3.125 MG; Start 11/20/16 at 21:00 Docusate Sodium (Colace) 100 mg BID PO Last administered on 11/24/16 08:49; Admin Dose 100 MG; Start 11/20/16 at 21:00 Folic Acid (Folic Acid) 0.8 mg DAILY PO Last administered on 11/24/16 08:48; Admin Dose 0.8 MG; Start 11/21/16 at 09:00 Gabapentin (Neurontin) 300 mg QHS PO Last administered on 11/23/16 21:29; Admin Dose 300 MG; Start 11/20/16 at 21:00 Miscellaneous Information 1 ea NOTE XX ; Start 11/20/16 at 15:00 Guaifenesin/ Dextromethorphan (Robitussin Dm Liquid Cup) 5 ml Q4H PRN PO COUGH Last administered on 11/24/16 06:18; Admin Dose 5 ML; Start 11/20/16 at 16:00 Loperamide HCl (Imodium Cap) 2 mg QID PRN PO DIARRHEA Last administered on 11/21 06:31; Admin Dose 2 MG; Start 11/21/16 at 02:30 Benazepril HCl (Lotensin) 10 mg DAILY GTB Last administered on 11/24/16 08:49 ; Admin Dose 10 MG; Start 11/22/16 at 09:00 Phenol (Cepastat Lozenge) 1 lozenge Q1H PRN MT Sore throat Last administered on 11/23/16 06:27; Admin Dose 1 LOZENGE; Start 11/21/16 at 13:00 Famotidine (Pepcid) 20 mg DAILY PO Last administered on 11/24/16 08:49; Admin Dose 20 MG; Start 11/21/16 at 14:00 Furosemide (Lasix) 40 mg DAILY IV Last administered on 11/24/16 08:48; Admin Dose 40 MG; Start 11/24/16 at 09:00 Methylprednisolone Sodium Succinate (Solu-Medrol) 40 mg Q8 IV Last administered on 11/24/16 13:36; Admin Dose 40 MG; Start 11/23/16 at 14:00 TO BURNHAM Nov 24, 2016 17:42
[2016-11-24] MEDS: GABAPENTIN 300 MG CAP PO SCH (20:14)
[2016-11-25] VITALS (12 sets, daily range): BP systolic 102–128; BP diastolic 64–96; PULSE 72–85; RESP 17–20
[2016-11-25] MEDS: LEVALBUTEROL (NEB) 0.63 MG/3 ML AMP HHN SCH ×6 (01:27→22:04)
[2016-11-25] MEDS: METHYLPREDNISOLONE 40 MG INJ IV SCH ×2 (05:28→14:55)
[2016-11-25 07:37] LABS: HEMATOCRIT 38.6 % (37.0-47.0); HEMOGLOBIN 12.3 g/dl (12.0-16.0); LYMPHOCYTES # 0.5 10^3/ul (0.8-2.9); LYMPHOCYTES % 4.6 % (15.0-51.0); MEAN CORPUSCULAR HEMOGLOBIN 29.7 pg (29.0-33.0); MEAN CORPUSCULAR HGB CONC 31.9 g/dl (32.0-37.0); MEAN PLATELET VOLUME 10.1 fl (7.4-10.4); MONOCYTE # 0.7 10^3/ul (0.3-0.9); MONOCYTES % 6.6 % (0.0-11.0); NEUTROPHIL # 9.3 10^3/ul (1.6-7.5); NEUTROPHILS % 88.8 % (39.0-77.0); NUCLEATED RED BLOOD CELLS% 2.1 /100WBC (0.0-0.0); PLATELET COUNT 301 10^3/UL (140-440); RED BLOOD COUNT 4.15 10^6/ul (4.20-5.40); RED CELL DISTRIBUTION WIDTH 17.1 % (11.5-14.5); UNCORRECTED WBC 10.5 10^3/ul (4.8-10.8); WHITE BLOOD COUNT 10.5 10^3/ul (4.8-10.8)
[2016-11-25 07:44] LABS: POTASSIUM 5.1 mmol/L (3.5-5.1)
[2016-11-25 07:46] LABS: CREATININE 1.44 mg/dl (0.44-1.00)
[2016-11-25 07:47] LABS: CALCIUM 9.3 mg/dl (8.4-10.2); MAGNESIUM 2.3 mg/dl (1.7-2.5); PHOSPHORUS 6.9 mg/dl (2.5-4.9)
[2016-11-25 07:48] LABS: CONDITION 1; LH ANALYZER COMMENTS 1; NUCLEATED RED BLOOD CELLS # 0.2 10^3/ul (0.0-0.0); SUSPECT 1
[2016-11-25] MEDS: IPRATROPIUM (NEB) 0.5 MG/2.5 ML AMP HHN SCH ×4 (08:23→22:04)
[2016-11-25] MEDS: FUROSEMIDE 40 MG INJ IV SCH (09:56)
[2016-11-25] MEDS: FOLIC ACID 0.4 MG TAB PO SCH (09:56)
[2016-11-25] MEDS: FAMOTIDINE 20 MG TAB PO SCH (09:56)
[2016-11-25] MEDS: DOCUSATE SODIUM 100 MG CAP PO SCH ×2 (09:56→20:26)
[2016-11-25] MEDS: BENAZEPRIL 10 MG TAB GTB SCH (09:57)
[2016-11-25] MEDS: SALMETEROL/FLUTICASONE 250/50 INHA INH SCH ×2 (09:57→20:27)
[2016-11-25] MEDS: HEPARIN 5,000 UNIT/0.5 ML SYG SC SCH ×2 (09:58→20:28)
[2016-11-25 10:23] LABS: ANISOCYTOSIS 1+
[2016-11-25] MEDS: GUAIFENESIN/DM 5ML CUP PO PRN (10:36)
--- NOTE | 2016-11-25 12:05 | CONS ---
Date/Time of Note Date/Time of Note DATE: 11/25/16 TIME: 12:02 Assessment/Plan Assessment/Plan Chief Complaint/Hosp Course IMPRESSION: 1. CHF-systolic EF 30-35% acute on chronic by most recent echo 2. Hypertension 3. Abdominal pain. 4. H/O Cirrhosis. 5. SOB/resp distress 6.Mitral regurgitation-moderate to severe by prior echo 7. H/O PEA arrest-09/26 8.COPD 9. Positive troponin-now trended negative 10.ARF Recc: -Tele -Continue ACEI/Coreg -Continue lasix diuresis -Continue steroids/bronchodilators -Follow volume status which is slowly improving by most recent CT -Trend cardiac enzymes Problems: Consultation Date/Type/Reason Admit Date/Time Nov 20, 2016 at 05:31 Initial Consult Date 11/21/2016 Type of Consultation: Cardiology Reason for Consultation CHF Referring Provider: MELISA WYATT MD Exam/Review of Systems Vital Signs Vitals Vital Signs Date Time Temp Pulse Resp B/P Pulse Ox O2 Delivery O2 Flow Rate FiO2 11/25/16 08:24 78 26 92 Simple Mask 10.0 11/25/16 07:47 98.3 128/96 Intake and Output 11/24/16 11/24/16 11/25/16 15:00 23:00 07:00 Intake Total 640 ml 220 ml Output Total 900 ml 375 ml Balance -260 ml -155 ml Exam Review of Systems: CONSTITUTIONAL: No fevers, chills. PULMONARY: ongoing sob CARDIOVASCULAR: No chest pain/palpitations GASTROINTESTINAL: No nausea/vomiting. GENITOURINARY: No hematuria/dysuria. MUSCULOSKELETAL: No myagias/arthalgias. PSYCHIATRIC: The patient denies depression. NEUROLOGIC: No weakness Constitutional: alert Psych: no complaints ENMT: mucosa pink and moist Neck: jvd (9 cm water), supple Respiratory: diminished breath sounds (at bases/B) Cardiovascular: regular rate and rhythm Gastrointestinal: non-tender, soft Extremities: pitting pedal edema (Bilateral) Neurological: lethargic Results Result Diagram: 11/25/16 0700 11/25/16 0700 Results 24 hrs Laboratory Tests Test 11/25/16 07:00 Anion Gap 20 H Anisocytosis 1+ B-Type Natriuretic Peptide 47055 H Basophils # 0.0 Basophils % 0.0 Blood Morphology Comment Blood Urea Nitrogen 73 H Calcium Level 9.3 Carbon Dioxide Level 23 Chloride Level 98 Creatinine 1.44 H Eosinophils # 0.0 Eosinophils % 0.0 Glucose Level 239 H Hematocrit 38.6 Hemoglobin 12.3 Lymphocytes # 0.5 L Lymphocytes % 4.6 L Magnesium Level 2.3 Mean Corpuscular Hemoglobin 29.7 Mean Corpuscular Hemoglobin Concent 31.9 L Mean Corpuscular Volume 93.0 Mean Platelet Volume 10.1 Monocytes # 0.7 Monocytes % 6.6 Neutrophils # 9.3 H Neutrophils % 88.8 H Nucleated Red Blood Cells # 0.2 H Nucleated Red Blood Cells % 2.1 H Phosphorus Level 6.9 H Platelet Count 301 Potassium Level 5.1 Red Blood Count 4.15 L Red Cell Distribution Width 17.1 H Sodium Level 136 White Blood Count 10.5 # Medications Medications Current Medications Lorazepam (Ativan) 0.5 mg Q6H PRN IV ANXIETY Last administered on 11/24/16 23: 24; Admin Dose 0.5 MG; Start 11/20/16 at 06:30 Ondansetron HCl (Zofran Inj) 4 mg Q6H PRN IV NAUSEA AND/OR VOMITING; Start at 06:30 Acetaminophen (Tylenol Tab) 650 mg Q6H PRN PO PAIN LEVEL 1-3 OR FEVER Last administered on 11/22/16 22:22; Admin Dose 650 MG; Start 11/20/16 at 06:30 Morphine Sulfate (morphine) 2 mg Q4H PRN IV PAIN LEVEL 7-10 Last administered on 11/24/16 23:23; Admin Dose 2 MG; Start 11/20/16 at 06:30 Heparin Sodium (Porcine) (Heparin (5000 Units/0.5 ml)) 5,000 unit Q12 SC Last administered on 11/25/16 09:58; Admin Dose 5,000 UNIT; Start 11/20/16 at 09:00 Salmeterol Xinafoate/ Fluticasone (Advair 250/50 Diskus) 1 inh BID INH Last administered on 11/25/16 09:57; Admin Dose 1 INH; Start 11/20/16 at 09:00 Carvedilol (Coreg) 3.125 mg BID PO Last administered on 11/25/16 09:57; Admin Dose 3.125 MG; Start 11/20/16 at 21:00 Docusate Sodium (Colace) 100 mg BID PO Last administered on 11/25/16 09:56; Admin Dose 100 MG; Start 11/20/16 at 21:00 Folic Acid (Folic Acid) 0.8 mg DAILY PO Last administered on 11/25/16 09:56; Admin Dose 0.8 MG; Start 11/21/16 at 09:00 Gabapentin (Neurontin) 300 mg QHS PO Last administered on 11/24/16 20:14; Admin Dose 300 MG; Start 11/20/16 at 21:00 Miscellaneous Information 1 ea NOTE XX ; Start 11/20/16 at 15:00 Guaifenesin/ Dextromethorphan (Robitussin Dm Liquid Cup) 5 ml Q4H PRN PO COUGH Last administered on 11/25/16 10:36; Admin Dose 5 ML; Start 11/20/16 at 16:00 Loperamide HCl (Imodium Cap) 2 mg QID PRN PO DIARRHEA Last administered on 11/21 06:31; Admin Dose 2 MG; Start 11/21/16 at 02:30 Benazepril HCl (Lotensin) 10 mg DAILY GTB Last administered on 11/25/16 09:57; Admin Dose 10 MG; Start 11/22/16 at 09:00 Phenol (Cepastat Lozenge) 1 lozenge Q1H PRN MT Sore throat Last administered on 11/23/16 06:27; Admin Dose 1 LOZENGE; Start 11/21/16 at 13:00 Famotidine (Pepcid) 20 mg DAILY PO Last administered on 11/25/16 09:56; Admin Dose 20 MG; Start 11/21/16 at 14:00 Furosemide (Lasix) 40 mg DAILY IV Last administered on 11/25/16 09:56; Admin Dose 40 MG; Start 11/24/16 at 09:00 Methylprednisolone Sodium Succinate (Solu-Medrol) 40 mg Q8 IV Last administered on 11/25/16 05:28; Admin Dose 40 MG; Start 11/23/16 at 14:00 GREGORIA COCHRAN 1, 2017 12:05
--- NOTE | 2016-11-25 13:58 | PN ---
Date/Time of Note Date/Time of Note DATE: 11/25/16 TIME: 13:52 Assessment/Plan VTE Prophylaxis VTE Prophylaxis Intervention: heparin Lines/Catheters IV [facility]from [facility] Urinary Cath still in place: Yes Assessment/Plan Chief Complaint/Hosp Course Assessment and plan 1. Acute on chronic hypoxic respiratory failure. Likely secondary to CHF exacerbation mixed with COPD. Continue on bronchodilators continue on diuretics. no PE seen on CT angio. cont with pulm recs 2. underlying COPD exacerbation. Continue on bronchodilators and steroid treatment 3. Elevated troponins. Resolved at present. Likely secondary to demand ischemia. Continue with cardiology recommendations 4. History of chronic arrest with pulseless electrical activity 2 months ago. Continue optimization with cardiovascular medications 5. Cardiomyopathy with ejection fraction of 35%. Continue on ALBERTO inhibitor and beta brent. Marriage Counselor Minister following. Continue with recommendations 6. Acute on chronic CHF with systolic and diastolic dysfunction. Continue on diuresis. Continue telemetry monitoring DVT prophylaxis: Heparin GERD prophylaxis: H2 brent Disposition and plan: continue diuretics. check follow up cxr Discussed but of care with Dr. Lara Problems: Subjective 24 Hr Interval Summary Free Text/Dictation still with reported shortness of breath Exam/Review of Systems Vital Signs Vitals Vital Signs Date Time Temp Pulse Resp B/P Pulse Ox O2 Delivery O2 Flow Rate FiO2 11/25/16 12:56 83 22 99 Simple Mask 10.0 11/25/16 12:00 98.6 126/96 Intake and Output 11/24/16 11/24/16 11/25/16 14:59 22:59 06:59 Intake Total 640 ml 220 ml Output Total 900 ml 375 ml Balance -260 ml -155 ml Exam General: slightly somnolent. Still has some dyspnea Eyes: pupils equal round, Anicteric sclera Neck: Supple nontender, no JVD Cardiac: S1, S2 auscultated, regular rhythm and rate Pulmonary: diminished lung bases GI: Abdomen soft nontender nondistended, bowel sounds active Extremities: Edema seen bilateral lower extremities +1 Skin: Clean dry and intact Neurologic: Alert to person place and time and situation Results Result Diagram: 11/25/16 0700 11/25/16 0700 Results 24 hrs Laboratory Tests Test 11/25/16 07:00 Anion Gap 20 H Anisocytosis 1+ B-Type Natriuretic Peptide 44773 H Basophils # 0.0 Basophils % 0.0 Blood Morphology Comment Blood Urea Nitrogen 73 H Calcium Level 9.3 Carbon Dioxide Level 23 Chloride Level 98 Creatinine 1.44 H Eosinophils # 0.0 Eosinophils % 0.0 Glucose Level 239 H Hematocrit 38.6 Hemoglobin 12.3 Lymphocytes # 0.5 L Lymphocytes % 4.6 L Magnesium Level 2.3 Mean Corpuscular Hemoglobin 29.7 Mean Corpuscular Hemoglobin Concent 31.9 L Mean Corpuscular Volume 93.0 Mean Platelet Volume 10.1 Monocytes # 0.7 Monocytes % 6.6 Neutrophils # 9.3 H Neutrophils % 88.8 H Nucleated Red Blood Cells # 0.2 H Nucleated Red Blood Cells % 2.1 H Phosphorus Level 6.9 H Platelet Count 301 Potassium Level 5.1 Red Blood Count 4.15 L Red Cell Distribution Width 17.1 H Sodium Level 136 White Blood Count 10.5 # Medications Medications Current Medications Lorazepam (Ativan) 0.5 mg Q6H PRN IV ANXIETY Last administered on 11/24/16 23: 24; Admin Dose 0.5 MG; Start 11/20/16 at 06:30 Ondansetron HCl (Zofran Inj) 4 mg Q6H PRN IV NAUSEA AND/OR VOMITING; Start at 06:30 Acetaminophen (Tylenol Tab) 650 mg Q6H PRN PO PAIN LEVEL 1-3 OR FEVER Last administered on 11/22/16 22:22; Admin Dose 650 MG; Start 11/20/16 at 06:30 Morphine Sulfate (morphine) 2 mg Q4H PRN IV PAIN LEVEL 7-10 Last administered on 11/24/16 23:23; Admin Dose 2 MG; Start 11/20/16 at 06:30 Heparin Sodium (Porcine) (Heparin (5000 Units/0.5 ml)) 5,000 unit Q12 SC Last administered on 11/25/16 09:58; Admin Dose 5,000 UNIT; Start 11/20/16 at 09:00 Salmeterol Xinafoate/ Fluticasone (Advair 250/50 Diskus) 1 inh BID INH Last administered on 11/25/16 09:57; Admin Dose 1 INH; Start 11/20/16 at 09:00 Carvedilol (Coreg) 3.125 mg BID PO Last administered on 11/25/16 09:57; Admin Dose 3.125 MG; Start 11/20/16 at 21:00 Docusate Sodium (Colace) 100 mg BID PO Last administered on 11/25/16 09:56; Admin Dose 100 MG; Start 11/20/16 at 21:00 Folic Acid (Folic Acid) 0.8 mg DAILY PO Last administered on 11/25/16 09:56; Admin Dose 0.8 MG; Start 11/21/16 at 09:00 Gabapentin (Neurontin) 300 mg QHS PO Last administered on 11/24/16 20:14; Admin Dose 300 MG; Start 11/20/16 at 21:00 Miscellaneous Information 1 ea NOTE XX ; Start 11/20/16 at 15:00 Guaifenesin/ Dextromethorphan (Robitussin Dm Liquid Cup) 5 ml Q4H PRN PO COUGH Last administered on 11/25/16 10:36; Admin Dose 5 ML; Start 11/20/16 at 16:00 Loperamide HCl (Imodium Cap) 2 mg QID PRN PO DIARRHEA Last administered on 11/21 06:31; Admin Dose 2 MG; Start 11/21/16 at 02:30 Benazepril HCl (Lotensin) 10 mg DAILY GTB Last administered on 11/25/16 09:57; Admin Dose 10 MG; Start 11/22/16 at 09:00 Phenol (Cepastat Lozenge) 1 lozenge Q1H PRN MT Sore throat Last administered on 11/23/16 06:27; Admin Dose 1 LOZENGE; Start 11/21/16 at 13:00 Famotidine (Pepcid) 20 mg DAILY PO Last administered on 11/25/16 09:56; Admin Dose 20 MG; Start 11/21/16 at 14:00 Furosemide (Lasix) 40 mg DAILY IV Last administered on 11/25/16 09:56; Admin Dose 40 MG; Start 11/24/16 at 09:00 Methylprednisolone Sodium Succinate (Solu-Medrol) 40 mg Q8 IV Last administered on 11/25/16 05:28; Admin Dose 40 MG; Start 11/23/16 at 14:00 TO BURNHAM Nov 25, 2016 13:58
--- NOTE | 2016-11-25 14:28 | CONS ---
Date/Time of Note Date/Time of Note DATE: 11/25/16 TIME: 14:27 Consult Date/Type/Reason Admit Date/Time Nov 20, 2016 at 05:31 Type of Consultation: pulmonary Ordering Provider: MELISA WYATT MD Subjective Mild confusion Increasing congestion Still requiring facemask oxygen Objective Vital Signs Date Time Temp Pulse Resp B/P Pulse Ox O2 Delivery O2 Flow Rate FiO2 11/25/16 12:56 83 22 99 Simple Mask 10.0 11/25/16 12:00 98.6 126/96 Intake and Output 11/24/16 11/24/16 11/25/16 15:00 23:00 07:00 Intake Total 640 ml 220 ml Output Total 900 ml 375 ml Balance -260 ml -155 ml PHYSICAL EXAMINATION: Elderly lady VITAL SIGNS: HEENT: Pupils are equal and react to light. NECK: No JVD noted, no cervical lymphadenopathy noted, no carotid bruits heard. LUNGS: Diminished air entry bilaterally with coarse rhonchi CARDIOVASCULAR: S1, S2 normal. ABDOMEN: Soft, nontender. No organomegaly or masses noted. EXTREMITIES: No clubbing or cyanosis noted. Pretibial edema present. NEUROLOGICAL: Awake and alert. Results/Medications Result Diagram: 11/25/16 0700 11/25/16 0700 Results 24 hrs Laboratory Tests Test 11/25/16 07:00 Anion Gap 20 H Anisocytosis 1+ B-Type Natriuretic Peptide 69859 H Basophils # 0.0 Basophils % 0.0 Blood Morphology Comment Blood Urea Nitrogen 73 H Calcium Level 9.3 Carbon Dioxide Level 23 Chloride Level 98 Creatinine 1.44 H Eosinophils # 0.0 Eosinophils % 0.0 Glucose Level 239 H Hematocrit 38.6 Hemoglobin 12.3 Lymphocytes # 0.5 L Lymphocytes % 4.6 L Magnesium Level 2.3 Mean Corpuscular Hemoglobin 29.7 Mean Corpuscular Hemoglobin Concent 31.9 L Mean Corpuscular Volume 93.0 Mean Platelet Volume 10.1 Monocytes # 0.7 Monocytes % 6.6 Neutrophils # 9.3 H Neutrophils % 88.8 H Nucleated Red Blood Cells # 0.2 H Nucleated Red Blood Cells % 2.1 H Phosphorus Level 6.9 H Platelet Count 301 Potassium Level 5.1 Red Blood Count 4.15 L Red Cell Distribution Width 17.1 H Sodium Level 136 White Blood Count 10.5 # Medications Current Medications Lorazepam (Ativan) 0.5 mg Q6H PRN IV ANXIETY Last administered on 11/24/16 23: 24; Admin Dose 0.5 MG; Start 11/20/16 at 06:30 Ondansetron HCl (Zofran Inj) 4 mg Q6H PRN IV NAUSEA AND/OR VOMITING; Start at 06:30 Acetaminophen (Tylenol Tab) 650 mg Q6H PRN PO PAIN LEVEL 1-3 OR FEVER Last administered on 11/22/16 22:22; Admin Dose 650 MG; Start 11/20/16 at 06:30 Morphine Sulfate (morphine) 2 mg Q4H PRN IV PAIN LEVEL 7-10 Last administered on 11/24/16 23:23; Admin Dose 2 MG; Start 11/20/16 at 06:30 Heparin Sodium (Porcine) (Heparin (5000 Units/0.5 ml)) 5,000 unit Q12 SC Last administered on 11/25/16 09:58; Admin Dose 5,000 UNIT; Start 11/20/16 at 09:00 Salmeterol Xinafoate/ Fluticasone (Advair 250/50 Diskus) 1 inh BID INH Last administered on 11/25/16 09:57; Admin Dose 1 INH; Start 11/20/16 at 09:00 Carvedilol (Coreg) 3.125 mg BID PO Last administered on 11/25/16 09:57; Admin Dose 3.125 MG; Start 11/20/16 at 21:00 Docusate Sodium (Colace) 100 mg BID PO Last administered on 11/25/16 09:56; Admin Dose 100 MG; Start 11/20/16 at 21:00 Folic Acid (Folic Acid) 0.8 mg DAILY PO Last administered on 11/25/16 09:56; Admin Dose 0.8 MG; Start 11/21/16 at 09:00 Gabapentin (Neurontin) 300 mg QHS PO Last administered on 11/24/16 20:14; Admin Dose 300 MG; Start 11/20/16 at 21:00 Miscellaneous Information 1 ea NOTE XX ; Start 11/20/16 at 15:00 Guaifenesin/ Dextromethorphan (Robitussin Dm Liquid Cup) 5 ml Q4H PRN PO COUGH Last administered on 2/1/17at 10:36; Admin Dose 5 ML; Start 11/20/16 at 16:00 Loperamide HCl (Imodium Cap) 2 mg QID PRN PO DIARRHEA Last administered on 11/21 06:31; Admin Dose 2 MG; Start 11/21/16 at 02:30 Benazepril HCl (Lotensin) 10 mg DAILY GTB Last administered on 11/25/16 09:57; Admin Dose 10 MG; Start 11/22/16 at 09:00 Phenol (Cepastat Lozenge) 1 lozenge Q1H PRN MT Sore throat Last administered on 11/23/16 06:27; Admin Dose 1 LOZENGE; Start 11/21/16 at 13:00 Famotidine (Pepcid) 20 mg DAILY PO Last administered on 11/25/16 09:56; Admin Dose 20 MG; Start 11/21/16 at 14:00 Furosemide (Lasix) 40 mg DAILY IV Last administered on 11/25/16 09:56; Admin Dose 40 MG; Start 11/24/16 at 09:00 Methylprednisolone Sodium Succinate (Solu-Medrol) 40 mg Q8 IV Last administered on 11/25/16 05:28; Admin Dose 40 MG; Start 11/23/16 at 14:00 Assessment/Plan Chief Complaint/Hosp Course IMPRESSION: 1. Congestive heart failure. 2. Underlying chronic obstructive pulmonary disease. CT chest shows some bronchiectasis also no significant pneumonia or congestive cardiac failure on chest CT 3. History of cardiopulmonary arrest. 4. History of prolonged respiratory failure in the past. 5. History of diabetes mellitus. 6. No evidence of thromboembolic disease on either CT pulmonary angiogram and lower extremity Dopplers RECOMMENDATIONS: 1. Continue Lasix 2. Bronchodilators. 3. Oxygen. 4. Increase steroids 5. Encourage out of bed, 6. Prognosis guarded Problems: [facility] Nov 25, 2016 14:28
[2016-11-25] MEDS: GABAPENTIN 300 MG CAP PO SCH (20:26)
[2016-11-26] VITALS (10 sets, daily range): BP systolic 122–135; BP diastolic 81–98; PULSE 69–89; RESP 20
[2016-11-26] MEDS: METHYLPREDNISOLONE 40 MG INJ IV SCH ×3 (00:55→15:12)
[2016-11-26] MEDS: LEVALBUTEROL (NEB) 0.63 MG/3 ML AMP HHN SCH ×5 (02:07→16:54)
[2016-11-26 07:55] LABS: CREATININE 1.12 mg/dl (0.44-1.00)
[2016-11-26 07:56] LABS: CALCIUM 8.9 mg/dl (8.4-10.2)
[2016-11-26 07:58] LABS: MEAN CORPUSCULAR HGB CONC 31.7 g/dl (32.0-37.0); MEAN CORPUSCULAR VOLUME 94.4 fl (82.0-101.0); MEAN PLATELET VOLUME 11.1 fl (7.4-10.4); PLATELET COUNT 182 10^3/UL (140-440); RED BLOOD COUNT 4.35 10^6/ul (4.20-5.40); RED CELL DISTRIBUTION WIDTH 16.8 % (11.5-14.5); WHITE BLOOD COUNT 8.8 10^3/ul (4.8-10.8)
[2016-11-26 08:06] LABS: CONDITION 1; LH ANALYZER COMMENTS 1; NUCLEATED RED BLOOD CELLS # 0.3 10^3/ul (0.0-0.0); SUSPECT 1; UNCORRECTED WBC 9.8 10^3/ul (4.8-10.8)
[2016-11-26 08:09] LABS: POTASSIUM 5.3 mmol/L (3.5-5.1)
[2016-11-26] MEDS: SALMETEROL/FLUTICASONE 250/50 INHA INH SCH (09:00)
[2016-11-26] MEDS: FAMOTIDINE 20 MG TAB PO SCH (09:18)
[2016-11-26] MEDS: DOCUSATE SODIUM 100 MG CAP PO SCH (09:18)
[2016-11-26] MEDS: FUROSEMIDE 40 MG INJ IV SCH (09:18)
[2016-11-26] MEDS: FOLIC ACID 0.4 MG TAB PO SCH (09:18)
[2016-11-26] MEDS: BENAZEPRIL 10 MG TAB GTB SCH (09:19)
[2016-11-26] MEDS: HEPARIN 5,000 UNIT/0.5 ML SYG SC SCH (09:32)
--- NOTE | 2016-11-26 10:12 | RADRPT ---
PROCEDURE: XR Chest. CLINICAL INDICATION: Shortness of breath. TECHNIQUE: Single frontal view. COMPARISON: 11/20/2016. FINDINGS: There is mild pulmonary edema, unchanged. The lungs are otherwise clear. The heart is enlarged. There is calcification in the aorta consistent with atherosclerosis. There is no pleural effusion. There is no pneumothorax. IMPRESSION: 1. Mild pulmonary edema, unchanged. 2. Cardiomegaly and atherosclerosis. RPTAT: QQ .Ward Teresa MD, MD Date Time Electronically viewed and signed by .Ward Teresa MD, MD on 11/26/2016 10:12 .R/
[2016-11-26] MEDS: IPRATROPIUM (NEB) 0.5 MG/2.5 ML AMP HHN SCH ×3 (10:20→16:54)
--- NOTE | 2016-11-26 11:37 | CONS ---
Date/Time of Note Date/Time of Note DATE: 11/26/16 TIME: 11:36 Consult Date/Type/Reason Admit Date/Time Nov 20, 2016 at 05:31 Type of Consultation: pulmonary Ordering Provider: MELISA WYATT MD Subjective Patient is better today less shortness of breath Still has significant cough Remains awake alert and oriented Objective Vital Signs Date Time Temp Pulse Resp B/P Pulse Ox O2 Delivery O2 Flow Rate FiO2 11/26/16 10:23 84 20 92 Venti Mask 12.0 40 11/26/16 08:01 97.7 131/92 Intake and Output 11/25/16 11/25/16 11/26/16 14:59 22:59 06:59 Intake Total 600 ml 200 ml Output Total 1400 ml 1000 ml Balance -800 ml -800 ml PHYSICAL EXAMINATION: Elderly lady VITAL SIGNS: HEENT: Pupils are equal and react to light. NECK: No JVD noted, no cervical lymphadenopathy noted, no carotid bruits heard. LUNGS: Diminished air entry bilaterally with coarse rhonchi CARDIOVASCULAR: S1, S2 normal. ABDOMEN: Soft, nontender. No organomegaly or masses noted. EXTREMITIES: No clubbing or cyanosis noted. Pretibial edema present. NEUROLOGICAL: Awake and alert. Results/Medications Result Diagram: 11/26/16 0645 11/26/16 0645 Results 24 hrs Laboratory Tests Test 11/26/16 06:45 Anion Gap 21 H Basophils # Pending Basophils % Pending Blood Morphology Comment Blood Urea Nitrogen 73 H Calcium Level 8.9 Carbon Dioxide Level 22 Chloride Level 99 Creatinine 1.12 H Eosinophils # Pending Eosinophils % Pending Glucose Level 270 H Hematocrit 41.0 Hemoglobin 13.0 Lymphocytes # Pending Lymphocytes % Pending Mean Corpuscular Hemoglobin 30.0 Mean Corpuscular Hemoglobin Concent 31.7 L Mean Corpuscular Volume 94.4 Mean Platelet Volume 11.1 H Monocytes # Pending Monocytes % Pending Neutrophils # Pending Neutrophils % Pending Nucleated Red Blood Cells # Pending Nucleated Red Blood Cells % Pending Platelet Count 182 # Potassium Level 5.3 H Red Blood Count 4.35 Red Cell Distribution Width 16.8 H Sodium Level 137 White Blood Count 8.8 Medications Current Medications Lorazepam (Ativan) 0.5 mg Q6H PRN IV ANXIETY Last administered on 11/24/16t 23: 24; Admin Dose 0.5 MG; Start 11/20/16 at 06:30 Ondansetron HCl (Zofran Inj) 4 mg Q6H PRN IV NAUSEA AND/OR VOMITING; Start at 06:30 Acetaminophen (Tylenol Tab) 650 mg Q6H PRN PO PAIN LEVEL 1-3 OR FEVER Last administered on 11/22/16 22:22; Admin Dose 650 MG; Start 11/20/16 at 06:30 Morphine Sulfate (morphine) 2 mg Q4H PRN IV PAIN LEVEL 7-10 Last administered on 11/24/16 23:23; Admin Dose 2 MG; Start 11/20/16 at 06:30 Heparin Sodium (Porcine) (Heparin (5000 Units/0.5 ml)) 5,000 unit Q12 SC Last administered on 11/26/16 09:32; Admin Dose 5,000 UNIT; Start 11/20/16 at 09:00 Salmeterol Xinafoate/ Fluticasone (Advair 250/50 Diskus) 1 inh BID INH Last administered on 11/25/16 20:27; Admin Dose 1 INH; Start 11/20/16 at 09:00 Carvedilol (Coreg) 3.125 mg BID PO Last administered on 11/26/16 09:19; Admin Dose 3.125 MG; Start 11/20/16 at 21:00 Docusate Sodium (Colace) 100 mg BID PO Last administered on 11/26/16 09:18; Admin Dose 100 MG; Start 11/20/16 at 21:00 Folic Acid (Folic Acid) 0.8 mg DAILY PO Last administered on 11/26/16 09:18; Admin Dose 0.8 MG; Start 11/21/16 at 09:00 Gabapentin (Neurontin) 300 mg QHS PO Last administered on 11/25/16 20:26; Admin Dose 300 MG; Start 11/20/16 at 21:00 Miscellaneous Information 1 ea NOTE XX ; Start 11/20/16 at 15:00 Guaifenesin/ Dextromethorphan (Robitussin Dm Liquid Cup) 5 ml Q4H PRN PO COUGH Last administered on 11/25/16 10:36; Admin Dose 5 ML; Start 11/20/16 at 16:00 Loperamide HCl (Imodium Cap) 2 mg QID PRN PO DIARRHEA Last administered on 11/21 06:31; Admin Dose 2 MG; Start 11/21/16 at 02:30 Benazepril HCl (Lotensin) 10 mg DAILY GTB Last administered on 11/26/16 09:19; Admin Dose 10 MG; Start 11/22/16 at 09:00 Phenol (Cepastat Lozenge) 1 lozenge Q1H PRN MT Sore throat Last administered on 11/23/16 06:27; Admin Dose 1 LOZENGE; Start 11/21/16 at 13:00 Famotidine (Pepcid) 20 mg DAILY PO Last administered on 11/26/16 09:18; Admin Dose 20 MG; Start 11/21/16 at 14:00 Furosemide (Lasix) 40 mg DAILY IV Last administered on 11/26/16 09:18; Admin Dose 40 MG; Start 11/24/16 at 09:00 Methylprednisolone Sodium Succinate (Solu-Medrol) 40 mg Q8 IV Last administered on 11/26/16 05:32; Admin Dose 40 MG; Start 11/23/16 at 14:00 Assessment/Plan Chief Complaint/Hosp Course IMPRESSION: 1. Congestive heart failure. 2. Underlying chronic obstructive pulmonary disease. CT chest shows some bronchiectasis also no significant pneumonia or congestive cardiac failure on chest CT 3. History of cardiopulmonary arrest. 4. History of prolonged respiratory failure in the past. 5. History of diabetes mellitus. 6. No evidence of thromboembolic disease on either CT pulmonary angiogram and lower extremity Dopplers RECOMMENDATIONS: 1. Continue Lasix 2. Bronchodilators. 3. Oxygen. 4. Increase steroids 5. Encourage out of bed, Consider transfer back to custodial facility when oxygenation improves and patient is on nasal cannula Problems: VERN ENRIQUEZ MD, [facility] Nov 26, 2016 11:37
[2016-11-26 12:50] LABS: LYMPHOCYTES # 0.3 10^3/ul (0.8-2.9); MONOCYTE # 0.1 10^3/ul (0.3-0.9); NEUTROPHIL # 8.4 10^3/ul (1.6-7.5); NUCLEATED RED BLOOD CELLS% 8.5 /100WBC (0.0-0.0)
[2016-11-26] MEDS ORDERED: GUAIFENESIN LA 600 MG TABSR PO SCH (14:30)
[2016-11-26] MEDS ORDERED: DEXTROSE 50% 50 ML SYRINGE IV PRN ×2 (14:30)
[2016-11-26] MEDS ORDERED: GLUCOSE GEL 15 GRAM TUBE BUCCAL PRN (14:30)
[2016-11-26] MEDS ORDERED: GLUCOSE GEL 15 GRAM TUBE PO PRN ×2 (14:30)
[2016-11-26] MEDS ORDERED: GLUCAGON 1 MG INJ IM PRN (14:30)
[2016-11-26] MEDS: GUAIFENESIN/DM 5ML CUP PO PRN (15:19)
--- NOTE | 2016-11-26 15:35 | PN ---
Date/Time of Note Date/Time of Note DATE: 11/26/16 TIME: 15:32 Assessment/Plan VTE Prophylaxis VTE Prophylaxis Intervention: SCD's Lines/Catheters IV Catheter Type (from [facility]): Saline Lock Urinary Cath still in place: Yes Assessment/Plan Chief Complaint/Hosp Course Assessment and plan 1. Acute on chronic hypoxic respiratory failure. Likely secondary to CHF exacerbation mixed with COPD. Continue on bronchodilators continue on diuretics. no PE seen on CT angio. cont with pulm recs 2. underlying COPD exacerbation. Continue on bronchodilators and steroid treatment 3. Elevated troponins. Resolved at present. Likely secondary to demand ischemia. Continue with cardiology recommendations 4. History of chronic arrest with pulseless electrical activity 2 months ago. Continue optimization with cardiovascular medications 5. Cardiomyopathy with ejection fraction of 35%. Continue on ALBERTO inhibitor and beta brent. [employer]ice following. Continue with recommendations 6. Acute on chronic CHF with systolic and diastolic dysfunction. Continue on diuresis. Continue telemetry monitoring DVT prophylaxis: Heparin GERD prophylaxis: H2 brent Disposition and plan: still with dyspnea. titrate down o2 as tolerated. PT to follow. d/c when medically stable and cleared by consultants Discussed but of care with Dr. Lara Problems: Subjective 24 Hr Interval Summary Free Text/Dictation still with some dyspnea. no s/s of distress Exam/Review of Systems Vital Signs Vitals Vital Signs Date Time Temp Pulse Resp B/P Pulse Ox O2 Delivery O2 Flow Rate FiO2 11/26/16 12:56 82 16 94 Venti Mask 12.0 40 11/26/16 11:56 97.5 130/96 Intake and Output 11/25/16 11/25/16 11/26/16 15:00 23:00 07:00 Intake Total 600 ml 200 ml Output Total 1400 ml 1000 ml Balance -800 ml -800 ml Exam General: slightly lethargic Eyes: pupils equal round, Anicteric sclera Neck: Supple nontender, no JVD Cardiac: S1, S2 auscultated, regular rhythm and rate Pulmonary: diminished lung bases GI: Abdomen soft nontender nondistended, bowel sounds active Extremities: Edema seen bilateral lower extremities +1 Skin: Clean dry and intact Neurologic: Alert to person place and time and situation Results Result Diagram: 11/26/16 0645 11/26/16 0645 Results 24 hrs Laboratory Tests Test 11/26/16 06:45 Anion Gap 21 H Basophils # 0.0 Basophils % 0.0 Blood Morphology Comment Blood Urea Nitrogen 73 H Calcium Level 8.9 Carbon Dioxide Level 22 Chloride Level 99 Creatinine 1.12 H Eosinophils # 0.0 Eosinophils % 0.0 Glucose Level 270 H Hematocrit 41.0 Hemoglobin 13.0 Lymphocytes # 0.3 L Lymphocytes % 3.0 L Mean Corpuscular Hemoglobin 30.0 Mean Corpuscular Hemoglobin Concent 31.7 L Mean Corpuscular Volume 94.4 Mean Platelet Volume 11.1 H Monocytes # 0.1 L Monocytes % 1.0 Neutrophils # 8.4 H Neutrophils % 95.0 H Nucleated Red Blood Cells # 0.3 H Nucleated Red Blood Cells % 8.5 H Platelet Count 182 # Potassium Level 5.3 H Red Blood Count 4.35 Red Cell Distribution Width 16.8 H Sodium Level 137 White Blood Count 8.8 Medications Medications Current Medications Lorazepam (Ativan) 0.5 mg Q6H PRN IV ANXIETY Last administered on 11/24/16 23: 24; Admin Dose 0.5 MG; Start 11/20/16 at 06:30 Ondansetron HCl (Zofran Inj) 4 mg Q6H PRN IV NAUSEA AND/OR VOMITING; Start at 06:30 Acetaminophen (Tylenol Tab) 650 mg Q6H PRN PO PAIN LEVEL 1-3 OR FEVER Last administered on 11/22/16 22:22; Admin Dose 650 MG; Start 11/20/16 at 06:30 Morphine Sulfate (morphine) 2 mg Q4H PRN IV PAIN LEVEL 7-10 Last administered on 11/24/16 23:23; Admin Dose 2 MG; Start 11/20/16 at 06:30 Heparin Sodium (Porcine) (Heparin (5000 Units/0.5 ml)) 5,000 unit Q12 SC Last administered on 11/26/16 09:32; Admin Dose 5,000 UNIT; Start 11/20/16 at 09:00 Salmeterol Xinafoate/ Fluticasone (Advair 250/50 Diskus) 1 inh BID INH Last administered on 11/26/16 09:00; Admin Dose 1 INH; Start 11/20/16 at 09:00 Carvedilol (Coreg) 3.125 mg BID PO Last administered on 11/26/16 09:19; Admin Dose 3.125 MG; Start 11/20/16 at 21:00 Docusate Sodium (Colace) 100 mg BID PO Last administered on 11/26/16 09:18; Admin Dose 100 MG; Start 11/20/16 at 21:00 Folic Acid (Folic Acid) 0.8 mg DAILY PO Last administered on 11/26/16 09:18; Admin Dose 0.8 MG; Start 11/21/16 at 09:00 Gabapentin (Neurontin) 300 mg QHS PO Last administered on 11/25/16 20:26; Admin Dose 300 MG; Start 11/20/16 at 21:00 Miscellaneous Information 1 ea NOTE XX ; Start 11/20/16 at 15:00 Guaifenesin/ Dextromethorphan (Robitussin Dm Liquid Cup) 5 ml Q4H PRN PO COUGH Last administered on 11/26/16 15:19; Admin Dose 5 ML; Start 11/20/16 at 16:00 Loperamide HCl (Imodium Cap) 2 mg QID PRN PO DIARRHEA Last administered on 11/21 06:31; Admin Dose 2 MG; Start 11/21/16 at 02:30 Benazepril HCl (Lotensin) 10 mg DAILY GTB Last administered on 11/26/16 09:19; Admin Dose 10 MG; Start 11/22/16 at 09:00 Phenol (Cepastat Lozenge) 1 lozenge Q1H PRN MT Sore throat Last administered on 11/23/16 06:27; Admin Dose 1 LOZENGE; Start 11/21/16 at 13:00 Famotidine (Pepcid) 20 mg DAILY PO Last administered on 11/26/16 09:18; Admin Dose 20 MG; Start 11/21/16 at 14:00 Furosemide (Lasix) 40 mg DAILY IV Last administered on 11/26/16 09:18; Admin Dose 40 MG; Start 11/24/16 at 09:00 Methylprednisolone Sodium Succinate (Solu-Medrol) 40 mg Q8 IV Last administered on 11/26/16 15:12; Admin Dose 40 MG; Start 11/23/16 at 14:00 Guaifenesin (Mucinex) 600 mg BID PO Last administered on 11/26/16 15:12; Admin Dose 600 MG; Start 11/26/16 at 14:30 Diagnostic Test (Pha) (Accucheck) 1 ea 02 XX ; Start 11/27/16 at 02:00 Miscellaneous Information 1 ea NOTE XX ; Start 11/26/16 at 14:30 Glucose (Glutose) 15 gm Q15M PRN PO DECREASED GLUCOSE; Start 11/26/16 at 14:30 Glucose (Glutose) 22.5 gm Q15M PRN PO DECREASED GLUCOSE; Start 11/26/16 at 14:30 Dextrose (D50w Syringe) 25 ml Q15M PRN IV DECREASED GLUCOSE; Start 11/26/16 at 14:30 Dextrose (D50w Syringe) 50 ml Q15M PRN IV DECREASED GLUCOSE; Start 11/26/16 at 14:30 Glucagon (Glucagen) 1 mg Q15M PRN IM DECREASED GLUCOSE; Start 11/26/16 at 14:30 Glucose (Glutose) 15 gm Q15M PRN BUCCAL DECREASED GLUCOSE; Start 11/26/16 at 14: 30 TO BURNHAM Nov 26, 2016 15:35
--- NOTE | 2016-11-26 18:01 | CONS ---
Date/Time of Note Date/Time of Note DATE: 11/26/16 TIME: 17:59 Assessment/Plan Assessment/Plan Chief Complaint/Hosp Course IMPRESSION: 1. CHF-systolic EF 30-35% acute on chronic by most recent echo 2. Hypertension 3. Abdominal pain. 4. H/O Cirrhosis. 5. SOB/resp distress 6.Mitral regurgitation-moderate to severe by prior echo 7. H/O PEA arrest-09/26 8.COPD 9. Positive troponin-now trended negative 10.ARF-improving with slowing of diuresis Recc: -Tele -Continue ACEI -Change coreg to B1 selective BB -Continue lasix diuresis -Continue steroids/bronchodilators -Follow volume status which is slowly Problems: Consultation Date/Type/Reason Admit Date/Time Nov 20, 2016 at 05:31 Initial Consult Date 11/21/2016 Type of Consultation: Cardiology Reason for Consultation CHF/cardiomyopathy Referring Provider: MELISA WYATT MD Exam/Review of Systems Vital Signs Vitals Vital Signs Date Time Temp Pulse Resp B/P Pulse Ox O2 Delivery O2 Flow Rate FiO2 11/26/16 17:28 12.0 40 11/26/16 16:57 80 16 95 Venti Mask 11/26/16 16:19 97.9 135/98 Intake and Output 11/25/16 11/25/16 11/26/16 15:00 23:00 07:00 Intake Total 600 ml 200 ml Output Total 1400 ml 1000 ml Balance -800 ml -800 ml Exam Review of Systems: CONSTITUTIONAL: No fevers, chills. PULMONARY: ongoing sob CARDIOVASCULAR: No chest pain/palpitations GASTROINTESTINAL: No nausea/vomiting. GENITOURINARY: No hematuria/dysuria. MUSCULOSKELETAL: No myagias/arthalgias. PSYCHIATRIC: The patient denies depression. NEUROLOGIC: No weakness Constitutional: alert, oriented Psych: no complaints Neck: jvd (9 cm water), supple Respiratory: diminished breath sounds (at bases/B) Cardiovascular: regular rate and rhythm Gastrointestinal: non-tender, soft Musculoskeletal: muscle tone Extremities: pitting pedal edema (bilateral) Neurological: other (No focal deficits) Results Result Diagram: 11/26/16 0645 11/26/16 0645 Results 24 hrs Laboratory Tests Test 11/26/16 06:45 Anion Gap 21 H Basophils # 0.0 Basophils % 0.0 Blood Morphology Comment Blood Urea Nitrogen 73 H Calcium Level 8.9 Carbon Dioxide Level 22 Chloride Level 99 Creatinine 1.12 H Eosinophils # 0.0 Eosinophils % 0.0 Glucose Level 270 H Hematocrit 41.0 Hemoglobin 13.0 Lymphocytes # 0.3 L Lymphocytes % 3.0 L Mean Corpuscular Hemoglobin 30.0 Mean Corpuscular Hemoglobin Concent 31.7 L Mean Corpuscular Volume 94.4 Mean Platelet Volume 11.1 H Monocytes # 0.1 L Monocytes % 1.0 Neutrophils # 8.4 H Neutrophils % 95.0 H Nucleated Red Blood Cells # 0.3 H Nucleated Red Blood Cells % 8.5 H Platelet Count 182 # Potassium Level 5.3 H Red Blood Count 4.35 Red Cell Distribution Width 16.8 H Sodium Level 137 White Blood Count 8.8 Medications Medications Current Medications Lorazepam (Ativan) 0.5 mg Q6H PRN IV ANXIETY Last administered on 11/24/16 23: 24; Admin Dose 0.5 MG; Start 11/20/16 at 06:30 Ondansetron HCl (Zofran Inj) 4 mg Q6H PRN IV NAUSEA AND/OR VOMITING; Start at 06:30 Acetaminophen (Tylenol Tab) 650 mg Q6H PRN PO PAIN LEVEL 1-3 OR FEVER Last administered on 11/22/16 22:22; Admin Dose 650 MG; Start 11/20/16 at 06:30 Morphine Sulfate (morphine) 2 mg Q4H PRN IV PAIN LEVEL 7-10 Last administered on 11/24/16 23:23; Admin Dose 2 MG; Start 11/20/16 at 06:30 Heparin Sodium (Porcine) (Heparin (5000 Units/0.5 ml)) 5,000 unit Q12 SC Last administered on 11/26/16 09:32; Admin Dose 5,000 UNIT; Start 11/20/16 at 09:00 Salmeterol Xinafoate/ Fluticasone (Advair 250/50 Diskus) 1 inh BID INH Last administered on 11/26/16 09:00; Admin Dose 1 INH; Start 11/20/16 at 09:00 Carvedilol (Coreg) 3.125 mg BID PO Last administered on 11/26/16 09:19; Admin Dose 3.125 MG; Start 11/20/16 at 21:00 Docusate Sodium (Colace) 100 mg BID PO Last administered on 11/26/16 09:18; Admin Dose 100 MG; Start 11/20/16 at 21:00 Folic Acid (Folic Acid) 0.8 mg DAILY PO Last administered on 11/26/16 09:18; Admin Dose 0.8 MG; Start 11/21/16 at 09:00 Gabapentin (Neurontin) 300 mg QHS PO Last administered on 11/25/16 20:26; Admin Dose 300 MG; Start 11/20/16 at 21:00 Miscellaneous Information 1 ea NOTE XX ; Start 11/20/16 at 15:00 Guaifenesin/ Dextromethorphan (Robitussin Dm Liquid Cup) 5 ml Q4H PRN PO COUGH Last administered on 11/26/16 15:19; Admin Dose 5 ML; Start 11/20/16 at 16:00 Loperamide HCl (Imodium Cap) 2 mg QID PRN PO DIARRHEA Last administered on 11/21 06:31; Admin Dose 2 MG; Start 11/21/16 at 02:30 Benazepril HCl (Lotensin) 10 mg DAILY GTB Last administered on 11/26/16 09:19; Admin Dose 10 MG; Start 11/22/16 at 09:00 Phenol (Cepastat Lozenge) 1 lozenge Q1H PRN MT Sore throat Last administered on 11/23/16 06:27; Admin Dose 1 LOZENGE; Start 11/21/16 at 13:00 Famotidine (Pepcid) 20 mg DAILY PO Last administered on 11/26/16 09:18; Admin Dose 20 MG; Start 11/21/16 at 14:00 Furosemide (Lasix) 40 mg DAILY IV Last administered on 11/26/16 09:18; Admin Dose 40 MG; Start 11/24/16 at 09:00 Methylprednisolone Sodium Succinate (Solu-Medrol) 40 mg Q8 IV Last administered on 11/26/16 15:12; Admin Dose 40 MG; Start 11/23/16 at 14:00 Guaifenesin (Mucinex) 600 mg BID PO Last administered on 11/26/16 15:12; Admin Dose 600 MG; Start 11/26/16 at 14:30 Diagnostic Test (Pha) (Accucheck) 1 ea 02 XX ; Start 11/27/16 at 02:00 Miscellaneous Information 1 ea NOTE XX ; Start 11/26/16 at 14:30 Glucose (Glutose) 15 gm Q15M PRN PO DECREASED GLUCOSE; Start 11/26/16 at 14:30 Glucose (Glutose) 22.5 gm Q15M PRN PO DECREASED GLUCOSE; Start 11/26/16 at 14:30 Dextrose (D50w Syringe) 25 ml Q15M PRN IV DECREASED GLUCOSE; Start 11/26/16 at 14:30 Dextrose (D50w Syringe) 50 ml Q15M PRN IV DECREASED GLUCOSE; Start 11/26/16 at 14:30 Glucagon (Glucagen) 1 mg Q15M PRN IM DECREASED GLUCOSE; Start 11/26/16 at 14:30 Glucose (Glutose) 15 gm Q15M PRN BUCCAL DECREASED GLUCOSE; Start 11/26/16 at 14: 30 GREGORIA COCHRAN Nov 26, 2016 18:01
[2016-11-26] MEDS ORDERED: INSULIN ASPART [NOVOLOG] 3 ML PEN SC SCH (18:05)
[2016-11-26] MEDS ORDERED: EPINEPHrine 0.1 MG/ML SYG ONE (18:42)
--- NOTE | 2016-11-26 19:48 | QN ---
Documentation Comment HPI: 66-year-old woman I was called to evaluate after she stopped breathing. JARRET GRIFFIN was called by [facility]. She was recently admitted for shortness of breath secondary to COPD and congestive heart failure, and has a history of a left ventricular ejection fraction of about 30%, and her who is at the bedside states she did have a previous cardiac arrest. Nurses states she stopped breathing, and turned blue, lost pulses. They immediately began chest compressions and gave 1 dose of epinephrine 1 mg IV. Past medical history: Congestive heart failure with a depressed left ventricular ejection fraction, COPD, hypertension, remote history of alcohol abuse, previous cardiac arrest Physical exam: GENERAL: Elderly woman, unresponsive HEENT: Dry mucous membranes, pale conjunctival, no cervical spine tenderness or step-off deformities, no goiter, no jaundice or icterus, extraocular movements intact without pain. No submandibular induration, and no pharyngeal erythema NEURO: Eyes closed, unresponsive, pupils fixed and dilated, no facial asymmetry CARDIAC: No heart sounds auscultated, no pulses palpated LUNGS: Poor breath sounds with assisted breaths on BVM ABDOMEN: Soft nontender, no guarding, no rigidity, no rebound, no psoas sign no obturator sign. Normoactive bowel sounds SKIN: Warm and dry to touch, superficial abdominal contusions consistent with recent subcutaneous injections, no lacerations, no ecchymosis, no target lesions , and without ulcers EXTREMITIES: Calves are bilaterally symmetrical, cool to touch, mild edema noted PSYCH: Unable to assess Medical decision making: Immediate high-quality chest compressions were started , rhythm was a wide-complex pulseless electrical activity at about 100 complexes per minute. Patient had no pulses. Endotracheal Intubation by me: Pre assessment performed. Pre-oxygenation performed with 100% oxygen RSI: Performed w/o complication or hypoxic events. Medications as ordered. Blade: Mac 4 ET Tube: 7.5 cm Depth: 23 cm at the lip Intubation confirmed by colorimetric CO2, equal breath sounds, quiet over the stomach. Patient was given multiple doses of intravenous epinephrine 1 mg each for sustained wide complex pulseless electrical activity. There was an episode of sustained rapid ventricular response at around 120 complexes per minute which I chose to defibrillate. This was unsuccessful. Patient also received sodium bicarbonate and calcium gluconate. Please refer to resuscitation log for all medications, dosages, and times. I also checked her blood sugar which was not hypoglycemic. Patient really never regained sustained pulses and remain unresponsive. She had no signs of life, and after speaking and providing brief counseling to her who is outside of the room I pronounced her at 18:48 on November 26, 2016. Critical Care: Time: 34 minutes, this was time separate from other procedures. Treatments/Evaluations: Close monitoring and treatment of unstable vital signs, cardiorespiratory, and neurologic status, while maintaining tight balance of fluid, respiratory, and cardiac interventions. Diagnostic impression: #1) acute cardiopulmonary arrest 2.) Acute systolic decompensated heart failure MONSE CAT MD Nov 26, 2016 19:48
[2016-11-27] MEDS ORDERED: ACCUCHECK XX SCH (02:00)
[2016-11-27] MEDS ORDERED: METOPROLOL (XL) 25 MG TAB PO SCH (09:00)
== END 2016-11-26 20:48 | disposition expired | DRG 291 ==
LOC: E/R 03:32 → MS4 05:31
PROVIDERS: ADMIT Internal Medicine; ATTEND Internal Medicine
DX: I11.0 Hypertensive heart disease with heart failure (principal); J96.21 Acute and chronic respiratory failure with hypoxia; N17.9 Acute kidney failure, unspecified; J44.1 Chronic obstructive pulmonary disease with (acute) exacerbation; K74.60 Unspecified cirrhosis of liver; I25.10 Atherosclerotic heart disease of native coronary artery without angina pectoris; I46.9 Cardiac arrest, cause unspecified; I34.0 Nonrheumatic mitral (valve) insufficiency; I36.1 Nonrheumatic tricuspid (valve) insufficiency; Z87.891 Personal history of nicotine dependence; I25.2 Old myocardial infarction; E11.9 Type 2 diabetes mellitus without complications; I50.43 Acute on chronic combined systolic (congestive) and diastolic (congestive) heart failure
CPT/HCPCS: 36415; 71010; 71275; 80048; 80053; 80061; 81003; 82550; 82553; 82962; 83036; 83735; 83880; 84100; 84443; 84484; 85025; 85610; 85730; 87045; 87081; 87086; 87400; 90686; 93005; 93970; 94640; 94644; 94664; 96374; 96375; 97110; 97162; 97530; J0171; J1815; J1940; J2060; J2270; J2920; J2930; J3475; Q9967